=== PATIENT | female | born 1985 | race Caucasian/White ===

== ENCOUNTER 2016-09-09 11:57 | Emergency (ER) | payer MEDICAID ==
[2016-09-09 12:32] VITALS: BP 135/92
--- NOTE | 2016-09-09 12:33 | ER Document Report ---
ED Medical Screen (RME) - General Stated Complaint: LOWER RIGHT SIDE ABDOMINAL PAIN Notes: onset: /friday RLQ abdominal pain NPO since [facility], [place] ED- for RLQ abdominal with nausea, vomiting and diarrhea. Blood work, CT scan, and pelvic US pain originated at her umbilicus with migration to her RLQ. Pt states she has had sharp stabbing abd pain with diarrhea and nausea/vomiting, fevers at home but 98.5 here hysterectomy, cholecystectomy recent dental extraction PCP: [facility] [place] TRAVEL OUTSIDE OF THE [place] IN LAST 30 DAYS: No - Related Data Allergies/Adverse Reactions: clarithromycin [From Biaxin] Allergy (Severe, Verified 09/09/16 12:33) Anaphylaxis hydrocodone bitartrate [From Vicodin] Allergy (Severe, Verified 09/09/16 12:33) Anaphylaxis oxycodone HCl [From Percocet] Allergy (Severe, Verified 09/09/16 12:33) Anaphylaxis Penicillins Allergy (Severe, Verified 09/09/16 12:33) Anaphylaxis Past Medical History - Social History Family history: Reviewed & Not Pertinent - Past Medical History Cardiac Medical History: Denies: Hx Coronary Artery Disease, Hx Heart Attack, Hx Hypertension Pulmonary Medical History: Denies: Hx Asthma, Hx Bronchitis, Hx COPD, Hx Pneumonia Neurological Medical History: Reports: Hx Migraine, Hx Seizures - febrile/last one as child. Denies: Hx Cerebrovascular Accident Renal/ Medical History: Reports: Hx Kidney Stones GI Medical History: Reports: Hx Irritable Bowel Musculoskeltal Medical History: Denies Hx Arthritis Psychiatric Medical History: Reports: Hx Depression Traumatic Medical History: Reports: Hx Fractures Infectious Medical History: Denies: Hx C-Diff Past Surgical History: Reports: Hx Section - x4, Hx Cholecystectomy, Hx Hysterectomy, Hx Oral Surgery, Hx Orthopedic Surgery, Hx Tonsillectomy, Hx Tubal Ligation - Immunizations Immunizations up to date: Yes Hx Diphtheria, Pertussis, Tetanus Vaccination: Yes Physical Exam - Vital signs Vitals: Temp Pulse Resp BP Pulse Ox 98.5 F 85 20 135/92 H 98 09/09/16 12:31 09/09/16 12:31 09/09/16 12:31 09/09/16 12:31 09/09/16 12:31 Course - Vital Signs Vital signs: Temp Pulse Resp BP Pulse Ox 98.5 F 85 20 135/92 H 98 09/09/16 12:31 09/09/16 12:31 09/09/16 12:31 09/09/16 12:31 09/09/16 12:31
[2016-09-09 13:23] LABS: APPEARANCE,URINE SLIGHTLY-CLOUDY; BILIRUBIN,URINE NEGATIVE (NEGATIVE); GLUCOSE, URINE NEGATIVE (NEGATIVE); KETONES,URINE NEGATIVE (NEGATIVE); LEUKOCYTE ESTERASE,URINE NEGATIVE (NEGATIVE); NITRITE,URINE NEGATIVE (NEGATIVE); PROTEIN,URINE NEGATIVE (NEGATIVE); URINE SPECIFIC GRAVITY 1.012; UROBILINOGEN,URINE NEGATIVE mg/dL (<2.0)
--- NOTE | 2016-09-09 14:27 | ER Document Report ---
ED GI/ - General Mode of Arrival: Ambulatory Information source: Patient TRAVEL OUTSIDE OF THE [place] IN LAST 30 DAYS: No - HPI Patient complains to provider of: Abdominal pain Onset: Other - x4 days Timing/Duration: Intermittent Location: RLQ Associated symptoms: Other - see narrative Similar symptoms previously: Yes Recently seen / treated by doctor: Yes <JUAN AVILEZ - Last Filed: 09/09/16 15:57> <TORRES TAM - Last Filed: 09/12/16 01:21> - General Chief Complaint: Abdominal Pain Stated Complaint: LOWER RIGHT SIDE ABDOMINAL PAIN Notes: Patient is a 31-year-old female that presents to the emergency department today with complaints of right lower quadrant abdominal pain for four days. Patient states when her pain began she went to see her primary care physician who "thought it was her ovaries or appendix". Patient states that evening she went to [facility] emergency room due to increasing pain; patient had a thorough workup including an abdominal CT, 2 ultrasounds, and blood work all which were negative. Patient said they told her they "don't know what's wrong" . Patient states she called her primary care physician again today because of continuing pain and he instructed her to come here. Patient states when her pain sets in it lasts for approximately 20 minutes and it comes and goes. Patient also has had nausea, vomiting, and diarrhea. Patient is afebrile. Patient denies a history of ovarian cysts, pelvic pain, vaginal discharge, history of ulcerative colitis, or fevers. (JUAN AVILEZ) - Related Data Allergies/Adverse Reactions: clarithromycin [From Biaxin] Allergy (Severe, Verified 09/09/16 12:33) Anaphylaxis hydrocodone bitartrate [From Vicodin] Allergy (Severe, Verified 09/09/16 12:33) Anaphylaxis oxycodone HCl [From Percocet] Allergy (Severe, Verified 09/09/16 12:33) Anaphylaxis Penicillins Allergy (Severe, Verified 09/09/16 12:33) Anaphylaxis Past Medical History - General Information source: Patient - Social History Smoking Status: Unknown if Ever Smoked Cigarette use (# per day): No Chew tobacco use (# tins/day): No Frequency of alcohol use: None Drug Abuse: None Lives with: Family Family History: Reviewed & Not Pertinent, CAD, DM, Hyperlipidemia, Hypertension Patient has suicidal ideation: No Patient has homicidal ideation: No Neurological Medical History: Reports: Hx Migraine, Hx Seizures - febrile/last one as child Renal/ Medical History: Reports: Hx Kidney Stones GI Medical History: Reports: Hx Irritable Bowel Psychiatric Medical History: Reports: Hx Depression Traumatic Medical History: Reports: Hx Fractures Past Surgical History: Reports: Hx Section - x4, Hx Cholecystectomy, Hx Hysterectomy, Hx Oral Surgery, Hx Orthopedic Surgery, Hx Tonsillectomy, Hx Tubal Ligation - Immunizations Immunizations up to date: Yes Hx Diphtheria, Pertussis, Tetanus Vaccination: Yes <JUAN AVILEZ - Last Filed: 09/09/16 15:57> Review of Systems - Review of Systems Constitutional: denies: Fever EENT: No symptoms reported Cardiovascular: No symptoms reported Respiratory: No symptoms reported Gastrointestinal: See HPI, Abdominal pain, Diarrhea, Nausea, Vomiting Genitourinary: No symptoms reported Female Genitourinary: No symptoms reported Musculoskeletal: No symptoms reported Skin: No symptoms reported Hematologic/Lymphatic: No symptoms reported Neurological/Psychological: No symptoms reported -: Yes All other systems reviewed and negative <JUAN AVILEZ - Last Filed: 09/09/16 15:57> Physical Exam <JUAN AVILEZ - Last Filed: 09/09/16 15:57> <TORRES TAM - Last Filed: 09/12/16 01:21> - Vital signs Vitals: Temp Pulse Resp BP Pulse Ox 98.5 F 85 20 135/92 H 98 09/09/16 12:31 09/09/16 12:31 09/09/16 12:31 09/09/16 12:31 09/09/16 12:31 (JUAN AVILEZ) (TORRES TAM) - Notes Notes: Physical Exam: General: Alert, appears well. HEENT: Normocephalic. Atraumatic. PERRL. Extraocular movements intact. Oropharynx clear. Neck: Supple. Non-tender. Respiratory: No respiratory distress. Clear and equal breath sounds bilaterally. Cardiovascular: Regular rate and rhythm. Abdominal: Obese. Non-tender. No rigidity, no palpable masses. No distension. Normal Bowel Sounds. Extremities: Moves all four extremities. Upper extremities: Normal inspection. Normal ROM. Lower extremities: Normal inspection. No edema. Normal ROM. Neurological: Normal cognition. AAOx4. Normal speech. Psychological: Normal affect. Normal Mood. Skin: Warm. Dry. Normal color. (JUAN AVILEZ) Course - Laboratory Result Diagrams: 09/09/16 14:15 09/09/16 14:15 <JUAN AVILEZ - Last Filed: 09/09/16 15:57> - Laboratory Result Diagrams: 09/09/16 14:15 09/09/16 14:15 <TORRES TAM - Last Filed: 09/12/16 01:21> - Re-evaluation Re-evalutation: 09/09/16 15:30 I personally performed the services described in the documentation, reviewed and edited the documentation which was dictated to my scribe in my presence, and it accurately records my words and actions. Patient presented to the emergency Department chief plain right lower quadrant abdominal pain for 4 days. She says she was seen and evaluated [facility] on Friday night and had a negative workup. Said her family doctor told her to come here. On examination the patient is tech stating in no acute distress with no acute abdominal rebound guarding or rigidity. We signed a release form to get her records from [facility] she had a CT with IV contrast that was normal including normal appendix she also had an ultrasound that showed no ovarian cyst with normal flow. States patient requested a note this she could document the medication she received for her poor officer. She'll have a history of chronic pain as well. She had a hysterectomy and has no cervix so doubt PID no vaginal discharge or bleeding she was discharged home with Juan states she didn't get any medications with documented in the records. On examination well-appearing nontoxic no acute abdominal findings with negative normal labs here. We will DC follow primary care physician in one to 2 days and discussed reasons for ED return sooner 09/09/16 16:08 Spoke with patient at bedside with the caser and charge nurse Mojgan. Patient yelling and arguing demanding to be treated with pain medications and fix her problem. Went into a detailed long explanation of no acute findings on examination laboratory evaluation or further workup that we obtain records from [facility] on Friday. Explained that nothing acute or surgical the family doctor follow up from here. Patient is on her a list with previous issues with chronic pain and narcotics. Discussed with her policy procedure and follow-up with primary care physician also instructed to return for increasing worsening or new symptoms (TORRES TAM) - Vital Signs Vital signs: Temp Pulse Resp BP Pulse Ox 98.5 F 85 20 135/92 H 98 09/09/16 12:31 09/09/16 12:31 09/09/16 12:31 09/09/16 12:31 09/09/16 12:31 (JUAN AVILEZ) (TORRES TAM) - Laboratory Laboratory results interpreted by me: 09/09/16 14:15 AST 53 H ALT 71 H (TORRES TAM) Discharge <JUAN AVILEZ - Last Filed: 09/09/16 15:57> <TORRES TAM - Last Filed: 09/12/16 01:21> - Discharge Clinical Impression: Drug-seeking behavior Abdominal pain Qualifiers: Abdominal location: lower abdomen, unspecified Qualified Code(s): R10.30 - Lower abdominal pain, unspecified Condition: Stable Disposition: HOME, SELF-CARE Additional Instructions: VOMITING: Vomiting (or nausea without vomiting) can be caused by many other different problems. It can mean that something's wrong with the stomach, such as ulcers or inflammation or the intestinal tract, such as appendicitis. But it can also be a symptom of a problem that has nothing to do with the stomach or intestines. Vomiting is common with severe headaches, earaches, tonsillitis, and kidney infections, etc. We see it with pneumonia or heart attacks. Drugs can cause nausea and vomiting. Many abdominal problems cause vomiting; for example, gallstones, kidney stones, pancreatitis, and intestinal obstruction ( blocked bowels). In most cases, curing the vomiting depends on fixing the problem that caused it. For temporary relief, we may use an anti-nausea medicine. For home use, we can prescribe suppositories, chewable pills, pills that dissolve in the mouth, or liquid anti-nausea drugs. If the vomiting seems to be caused by a problem in the stomach, acid-suppressing drugs may be prescribed as well. It's important to avoid dehydration. Sip small amounts of clear liquids ( soft drinks, tea, broth, etc) . Try to take fluids frequently even if you are vomiting to prevent dehydration. Take increasing amounts of fluid and when liquids are being consumed successfully, advance to small amounts of bland food (toast, soups, mashed potatoes, etc.) until you are able to resume a regular diet. Avoid aspirin, tobacco, and alcohol. If the vomiting worsens, if the problem that's making you vomit worsens, or if there's evidence of bleeding in the stomach (such as black, tarry stool, or bloody or black vomit), you should return immediately. Also, return if abdominal pain worsens or becomes localized to one area or you develop high fever. Call your doctor if you aren't improved in 24 hours. DIARRHEA, NON-SPECIFIC: Diarrhea means frequent, watery stools. There are many causes. Any problem that keeps the intestinal tract from absorbing water from the stool can lead to diarrhea. A sudden new diarrhea problem is usually caused by a virus, food sensitivity, toxic bacteria, or drugs. In this case, we expect the problem to go away soon. Testing is done only if you seem seriously ill from the diarrhea. If you have chronic diarrhea, or diarrhea that keeps coming back, we need to find out why. Chronic diarrhea can be due to inflammation of the bowels such as Crohn's disease or ulcerative colitis, food sensitivity such as intolerance to lactose or wheat protein, irritable bowel syndrome, and other problems. If your diarrhea is a significant problem but it's not clear why you have it, we' ll refer you to a specialist for further testing. During an episode of diarrhea, drink small amounts (two to six ounces) of clear liquids (soft drinks, sport drinks, herb teas, broth, etc). Take fluids frequently to prevent dehydration. It's usually not a problem to take mild anti- diarrhea medication such as Kaopectate or Pepto-Bismol. As the diarrhea eases, advance to small amounts of bland food (mashed potato, toast) for 24 hours. Call the physician if blood appears in your vomit or stool, if vomiting lasts longer than 24 hours, if the abdominal pain worsens or becomes localized to one area, if you develop high fever, or if you become lightheaded and weak. VIRAL SYNDROME: The physician has diagnosed a viral infection. Viruses not only cause "colds," but can cause many different symptoms including generalized aching, fever, headache, cough, diarrhea, nausea, vomiting, and fatigue. The treatment, for the most part, is simply relief of symptoms. This means that antibiotics are usually not given. Rest, fluids, pain medications and, occasionally, medication for the specific symptoms that are most bothersome will be prescribed. Use good handwashing to avoid passing the virus to others. Shared toys should be cleaned with disinfectant. Clean the toilets, sinks, and counter surfaces in bathrooms. Launder clothing in hot water. Contact the physician if you develop any new or unusual symptoms such as severe headache, stiff neck, high fever, chest pain, productive cough, or shortness of breath. You should be rechecked if you don't see marked improvement within seven to 10 days. Follow-up with your primary care physician in one to 2 days return for increasing worsening or new symptoms FOLLOW-UP CARE: If you have been referred to a physician for follow-up care in 1-2 days, call the physicians office for an appointment as you were instructed or within the next two days. If you experience worsening or a significant change in your symptoms, notify the physician immediately or return to the Emergency Department at any time for re-evaluation.Abdominal Pain There are many causes of abdominal pain. Pain can mean a serious problem requiring surgery (such as appendicitis). It can also be an innocent problem that goes away on its own (such as a viral infection). Often, time must pass to determine the cause of pain. The physician does not feel that hospitalization is necessary, at present. Things may change within the next 24 hours. Call the doctor or come back for re- examination if any problems occur, such as: (1) Pain that becomes more severe, steady, or becomes concentrated in one specific area. Also, pain that is more severe with movement or coughing. (2) Vomiting that persists or becomes more frequent. (3) Blood in the vomitus, urine, or bowel movements. Blood in the stool may have a tarry or black appearance. (4) Shaking chills or fever greater than 100 degrees F. (5) The abdomen becomes more distended or swollen. (6) Bowel movements cease. (7) Failure to improve as expected. Scribe Documentation <JUAN AVILEZ - Last Filed: 09/09/16 15:57> <TORRES TAM - Last Filed: 09/12/16 01:21> - Scribe Written by Radha:: Dima (JUAN AVILEZ)
[2016-09-09 14:44] LABS: ABSOLUTE EOSINOPHILS # (AUTO) 0.1 10^3/uL (0.0-0.6); ABSOLUTE LYMPHOCYTES (AUTO) 2.1 10^3/uL (0.5-4.7); ABSOLUTE MONOCYTES (AUTO) 0.3 10^3/uL (0.1-1.4); BASOPHILS % (AUTO) 0.6 % (0-2); EOSINOPHILS % (AUTO) 2.4 % (0-6); HEMATOCRIT 43.9 % (36.0-47.0); HEMOGLOBIN 14.5 g/dL (12.0-15.5); HGB HCT DIFFERENCE -0.4; LYMPHOCYTES % (AUTO) 37.8 % (13-45); MEAN CORPUSCULAR HEMOGLOBIN 30.6 pg (27.0-33.4); MEAN CORPUSCULAR VOLUME 93 fl (80-97); MONOCYTES % (AUTO) 5.5 % (3-13); RED BLOOD COUNT 4.73 10^6/uL (3.72-5.28); RED CELL DISTRIBUTION WIDTH 13.4 % (11.5-14.0); SEGMENTED NEUTROPHILS % (AUTO) 53.7 % (42-78); WHITE BLOOD COUNT 5.6 10^3/uL (4.0-10.5)
[2016-09-09 15:02] LABS: ALANINE AMINOTRANSFERASE 71 U/L (9-52); ALBUMIN 4.5 g/dL (3.5-5.0); ALKALINE PHOSPHATASE 62 U/L (38-126); ANION GAP 12 (5-19); ASPARTATE AMINO TRANSFERASE 53 U/L (14-36); BILIRUBIN,TOTAL 1.1 mg/dL (0.2-1.3); BLOOD UREA NITROGEN 9 mg/dL (7-20); CALCIUM 9.6 mg/dL (8.4-10.2); CARBON DIOXIDE 27 mmol/L (22-30); CHLORIDE 103 mmol/L (98-107); CREATININE RESULT 0.69 mg/dL (0.52-1.25); GLUCOSE 79 mg/dL (75-110); LIPASE 54.9 U/L (23-300); POTASSIUM 4.7 mmol/L (3.6-5.0); TOTAL PROTEIN 6.7 g/dL (6.3-8.2)
[2016-09-09 15:26] LABS: URINE BARBITURATES SCREEN NEGATIVE; URINE METHADONE SCREEN NEGATIVE; URINE PHENCYCLIDINE SCREEN NEGATIVE
== END 2016-09-09 16:15 | disposition home or self-care (01) ==
LOC: ER 11:57
DX: R10.32 Left lower quadrant pain (principal); Z76.5 Malingerer [conscious simulation]; R11.2 Nausea with vomiting, unspecified; R19.7 Diarrhea, unspecified; Z87.892 Personal history of anaphylaxis; Z88.1 Allergy status to other antibiotic agents; Z88.5 Allergy status to narcotic agent; Z88.0 Allergy status to penicillin; Z87.442 Personal history of urinary calculi; Z90.49 Acquired absence of other specified parts of digestive tract; Z90.710 Acquired absence of both cervix and uterus; Z98.51 Tubal ligation status
CPT/HCPCS: 36415; 80053; 80307; 81001; 81025; 83690; 85025; 87086; 99284

== ENCOUNTER 2017-06-05 20:00 | Emergency (ER) | payer MEDICAID ==
[2017-06-05 21:01] VITALS: BP 114/87
[2017-06-05 22:45] LABS: APPEARANCE,URINE SLIGHTLY-CLOUDY; BILIRUBIN,URINE NEGATIVE (NEGATIVE); GLUCOSE, URINE NEGATIVE (NEGATIVE); KETONES,URINE NEGATIVE (NEGATIVE); LEUKOCYTE ESTERASE,URINE NEGATIVE (NEGATIVE); NITRITE,URINE NEGATIVE (NEGATIVE); PROTEIN,URINE NEGATIVE (NEGATIVE); URINE SPECIFIC GRAVITY 1.018; UROBILINOGEN,URINE NEGATIVE mg/dL (<2.0)
[2017-06-05 23:53] LABS: ABSOLUTE BASOPHILS # (AUTO) 0.1 10^3/uL (0.0-0.2); ABSOLUTE EOSINOPHILS # (AUTO) 0.1 10^3/uL (0.0-0.6); ABSOLUTE LYMPHOCYTES (AUTO) 3.2 10^3/uL (0.5-4.7); ABSOLUTE MONOCYTES (AUTO) 0.5 10^3/uL (0.1-1.4); ABSOLUTE NEUT (AUTO) 4.6 10^3/uL (1.7-8.2); BASOPHILS % (AUTO) 0.9 % (0-2); EOSINOPHILS % (AUTO) 1.5 % (0-6); HEMATOCRIT 43.3 % (36.0-47.0); HEMOGLOBIN 15.4 g/dL (12.0-15.5); HGB HCT DIFFERENCE 2.9; LYMPHOCYTES % (AUTO) 37.5 % (13-45); MEAN CORPUSCULAR HEMOGLOBIN 31.9 pg (27.0-33.4); MEAN CORPUSCULAR HGB CONC 35.5 g/dL (32.0-36.0); MEAN CORPUSCULAR VOLUME 90 fl (80-97); MONOCYTES % (AUTO) 5.8 % (3-13); RED BLOOD COUNT 4.83 10^6/uL (3.72-5.28); RED CELL DISTRIBUTION WIDTH 13.3 % (11.5-14.0); SEGMENTED NEUTROPHILS % (AUTO) 54.3 % (42-78); WHITE BLOOD COUNT 8.5 10^3/uL (4.0-10.5)
[2017-06-06 00:07] LABS: ALANINE AMINOTRANSFERASE 39 U/L (9-52); ALBUMIN 3.9 g/dL (3.5-5.0); ALKALINE PHOSPHATASE 52 U/L (38-126); ANION GAP 11 (5-19); ASPARTATE AMINO TRANSFERASE 22 U/L (14-36); BILIRUBIN,DIRECT 0.3 mg/dL (0.0-0.4); BILIRUBIN,TOTAL 0.6 mg/dL (0.2-1.3); BLOOD UREA NITROGEN 13 mg/dL (7-20); CALCIUM 9.3 mg/dL (8.4-10.2); CARBON DIOXIDE 26 mmol/L (22-30); CHLORIDE 104 mmol/L (98-107); CREATININE RESULT 0.73 mg/dL (0.52-1.25); GLUCOSE 84 mg/dL (75-110); POTASSIUM 4.3 mmol/L (3.6-5.0); SODIUM 140.5 mmol/L (137-145); TOTAL PROTEIN 5.7 g/dL (6.3-8.2)
--- NOTE | 2017-06-06 00:22 | ER Document Report ---
ED Neck/Back Problem - General Chief Complaint: Back Pain Stated Complaint: UPPER BACK PAIN Time Seen by Provider: 06/05/17 23:30 Notes: The patient is a 31-year-old female, past medical history hysterectomy, cholecystectomy and multiple C-sections, presents with a few days of left flank pain that is worse with palpation and movement and improved when she sits still. She denies nausea, vomiting, dysuria, hematuria, fevers, abdominal pain , cough, chest pain or rash. TRAVEL OUTSIDE OF THE [place] IN LAST 30 DAYS: No - Related Data Allergies/Adverse Reactions: clarithromycin [From Biaxin] Allergy (Severe, Verified 06/05/17 22:20) Anaphylaxis hydrocodone bitartrate [From Vicodin] Allergy (Severe, Verified 06/05/17 22:20) Anaphylaxis oxycodone HCl [From Percocet] Allergy (Severe, Verified 06/05/17 22:20) Anaphylaxis Penicillins Allergy (Severe, Verified 06/05/17 22:20) Anaphylaxis Past Medical History - General Information source: Patient - Social History Smoking Status: Current Some Day Smoker Chew tobacco use (# tins/day): No Frequency of alcohol use: None Drug Abuse: None Family History: Reviewed & Not Pertinent, CAD, DM, Hyperlipidemia, Hypertension Patient has suicidal ideation: No Patient has homicidal ideation: No - Past Medical History Cardiac Medical History: Denies: Hx Coronary Artery Disease, Hx Heart Attack, Hx Hypertension Pulmonary Medical History: Denies: Hx Asthma, Hx Bronchitis, Hx COPD, Hx Pneumonia Neurological Medical History: Reports: Hx Migraine, Hx Seizures - febrile/last one as child. Denies: Hx Cerebrovascular Accident Renal/ Medical History: Reports: Hx Kidney Stones. Denies: Hx Peritoneal Dialysis GI Medical History: Reports: Hx Irritable Bowel Musculoskeltal Medical History: Denies Hx Arthritis Psychiatric Medical History: Reports: Hx Depression Traumatic Medical History: Reports: Hx Fractures Infectious Medical History: Denies: Hx C-Diff Past Surgical History: Reports: Hx Section - x4, Hx Cholecystectomy, Hx Hysterectomy, Hx Oral Surgery, Hx Orthopedic Surgery, Hx Tonsillectomy, Hx Tubal Ligation - Immunizations Immunizations up to date: Yes Hx Diphtheria, Pertussis, Tetanus Vaccination: Yes Review of Systems - Review of Systems Notes: REVIEW OF SYSTEMS: CONSTITUTIONAL: -fevers, -chills EENT: -eye pain, -difficulty swallowing, -nasal congestion CARDIOVASCULAR:-chest pain, -syncope. RESPIRATORY: -cough, -SOB GASTROINTESTINAL: -abdominal pain, - nausea, -vomiting, -diarrhea GENITOURINARY: -dysuria, -hematuria MUSCULOSKELETAL: +left mid-back pain, -neck pain SKIN: -rash or skin lesions. HEMATOLOGIC: -easy bruising or bleeding. LYMPHATIC: -swollen, enlarged glands. NEUROLOGICAL: -altered mental status or loss of consciousness, -headache, - neurologic symptoms PSYCHIATRIC: -anxiety, -depression. ALL OTHER SYSTEMS REVIEWED AND NEGATIVE. Physical Exam - Vital signs Vitals: Temp Pulse Resp BP Pulse Ox 97.9 F 93 20 114/87 H 98 06/05/17 20:58 06/05/17 20:58 06/05/17 20:58 06/05/17 20:58 06/05/17 20:58 - Notes Notes: PHYSICAL EXAMINATION: GENERAL: Well-appearing, well-nourished and in no acute distress. HEAD: Atraumatic, normocephalic. EYES: Pupils equal round and reactive to light, extraocular movements intact, sclera anicteric, conjunctiva are normal. ENT: nares patent, oropharynx clear without exudates. Moist mucous membranes. NECK: Normal range of motion, supple without lymphadenopathy LUNGS: Breath sounds clear to auscultation bilaterally and equal. No wheezes rales or rhonchi. HEART: Regular rate and rhythm without murmurs ABDOMEN: Soft, nontender, normoactive bowel sounds. No guarding, no rebound. No masses appreciated. EXTREMITIES: Normal range of motion, no pitting or edema. No cyanosis. BACK: Tenderness over left mid back with spasming. NEUROLOGICAL: Cranial nerves grossly intact. Normal speech, normal gait. Normal sensory and motor exams. PSYCH: Normal mood, normal affect. SKIN: Warm, Dry, normal turgor, no rashes or lesions noted. Course - Re-evaluation Re-evalutation: Patient appears well. She has tenderness over her left flank that reproduces her pain. Her urinalysis does not show any evidence of pyelonephritis and her abdomen is completely soft and nontender. Rest of labs are unremarkable. Instructed patient to use Lidoderm patches and Robaxin for muscle strain and follow-up with her primary care physician. Offered patient a Lidoderm patch and Robaxin, but patient left prior to receiving the medications. - Vital Signs Vital signs: Temp Pulse Resp BP Pulse Ox 97.9 F 93 18 114/87 H 98 06/05/17 20:58 06/05/17 20:58 06/05/17 22:23 06/05/17 20:58 06/05/17 20:58 - Laboratory Result Diagrams: 06/05/17 23:35 06/05/17 23:35 Laboratory results interpreted by me: 06/05/17 23:35 Total Protein 5.7 L Discharge - Discharge Clinical Impression: Left flank pain Condition: Stable Disposition: HOME, SELF-CARE Additional Instructions: Flank Pain We weren't able to prove an exact cause for your flank pain. Pain in the flank can be caused by a muscle strain or spasm. Sometimes a kidney stone causes pain, but can't be found on our tests. Infection in the kidney should be evident on a urine test. Early shingles can occasionally cause flank pain, without the rash that proves the diagnosis. On rare occasions, disease of the pancreas, aorta, spleen, or colon can create pain in the flank. At this time, there's no evidence of a dangerous condition, and it seems safe for you to be at home. If the pain goes away and does not come back, no further testing will be needed. If pain persists, or becomes more severe, we may need to repeat some tests or order additional new testing. Blood in the urine, urgency to urinate frequently, and pain that radiates to the groin can indicate a kidney stone. Fever may mean that the pain is due to infection, either of the kidney or the colon (diverticulitis). If your pain is early shingles, you should develop an eruption of blisters in the painful area within a few days. Call the doctor or return if you have pain that is spreading or becoming more severe, pain that does not resolve with time, fever, or any other new symptoms. Prescriptions: Lidocaine [Lidoderm 5% (700 mg) Transdermal Patch] 1 patch TP DAILY #10 adh..patch Methocarbamol [Robaxin 500 mg Tablet] 500 mg PO Q4H PRN #7 tablet PRN Reason: Referrals: RAMIRO SINGH MD [Primary Care Provider] - Follow up as needed
[2017-06-06] MEDS ORDERED: LIDOCAINE 5% (700 MG) TRANSDERMAL ADH..PATCH TP ONE (00:50)
[2017-06-06] MEDS ORDERED: METHOCARBAMOL 500 MG TABLET PO ONE (00:50)
== END 2017-06-06 00:48 | disposition home or self-care (01) ==
LOC: ER 20:00
DX: S14.8XXA Injury of other specified nerves of neck, initial encounter (principal); X58.XXXA Exposure to other specified factors, initial encounter; R10.9 Unspecified abdominal pain; R25.2 Cramp and spasm; F17.200 Nicotine dependence, unspecified, uncomplicated; Z90.710 Acquired absence of both cervix and uterus; Z90.49 Acquired absence of other specified parts of digestive tract; Z87.892 Personal history of anaphylaxis; Z88.1 Allergy status to other antibiotic agents; Z88.5 Allergy status to narcotic agent; Z88.0 Allergy status to penicillin; Z87.442 Personal history of urinary calculi
CPT/HCPCS: 36415; 80053; 81001; 81025; 85025; 99283

== ENCOUNTER 2017-08-10 13:34 | Emergency (ER) | payer MEDICAID ==
[2017-08-10 13:42] VITALS: BP 136/89
--- NOTE | 2017-08-10 14:46 | ER Document Report ---
ED Medical Screen (RME) - General Chief Complaint: Abdominal Pain Stated Complaint: ABDOMINAL PAIN Time Seen by Provider: 08/10/17 14:41 Notes: 32-year-old female patient with 2 day history of pain across her lower abdomen states feels like someone is beating her with a baseball that. Watery diarrhea for 2 days which she says is not diarrhea it is just water. Nausea and vomiting , headache, migraine, dizzy, and fever. She has had a partial hysterectomy and cholecystectomy in the past. I have greeted and performed a rapid initial assessment of this patient. A comprehensive ED assessment and evaluation of the patient, analysis of test results and completion of the medical decision making process will be conducted by additional ED providers. TRAVEL OUTSIDE OF THE [place] IN LAST 30 DAYS: No - Related Data Allergies/Adverse Reactions: clarithromycin [From Biaxin] Allergy (Severe, Verified 08/10/17 13:34) Anaphylaxis hydrocodone bitartrate [From Vicodin] Allergy (Severe, Verified 08/10/17 13:34) Anaphylaxis oxycodone HCl [From Percocet] Allergy (Severe, Verified 08/10/17 13:34) Anaphylaxis Penicillins Allergy (Severe, Verified 08/10/17 13:34) Anaphylaxis Past Medical History - Social History Chew tobacco use (# tins/day): No Frequency of alcohol use: None Drug Abuse: None Family history: Reviewed & Not Pertinent - Past Medical History Cardiac Medical History: Denies: Hx Coronary Artery Disease, Hx Heart Attack, Hx Hypertension Pulmonary Medical History: Denies: Hx Asthma, Hx Bronchitis, Hx COPD, Hx Pneumonia Neurological Medical History: Reports: Hx Migraine, Hx Seizures - febrile/last one as child. Denies: Hx Cerebrovascular Accident Renal/ Medical History: Reports: Hx Kidney Stones. Denies: Hx Peritoneal Dialysis GI Medical History: Reports: Hx Irritable Bowel Musculoskeltal Medical History: Denies Hx Arthritis Psychiatric Medical History: Reports: Hx Depression Traumatic Medical History: Reports: Hx Fractures Infectious Medical History: Denies: Hx C-Diff Past Surgical History: Reports: Hx Section - x4, Hx Cholecystectomy, Hx Hysterectomy, Hx Oral Surgery, Hx Orthopedic Surgery, Hx Tonsillectomy, Hx Tubal Ligation - Immunizations Immunizations up to date: Yes Hx Diphtheria, Pertussis, Tetanus Vaccination: Yes History of Influenza Vaccine for 05/2017 - 10/2017 Season: No Physical Exam - Vital signs Vitals: Temp Pulse Resp BP Pulse Ox 98.4 F 90 20 136/89 H 99 08/10/17 13:40 08/10/17 13:40 08/10/17 13:40 08/10/17 13:40 08/10/17 13:40 Course - Vital Signs Vital signs: Temp Pulse Resp BP Pulse Ox 98.4 F 90 20 136/89 H 99 08/10/17 13:40 08/10/17 13:40 08/10/17 13:40 08/10/17 13:40 08/10/17 13:40
[2017-08-10 15:01] LABS: APPEARANCE,URINE SLIGHTLY-CLOUDY; BILIRUBIN,URINE NEGATIVE (NEGATIVE); GLUCOSE, URINE NEGATIVE (NEGATIVE); KETONES,URINE NEGATIVE (NEGATIVE); LEUKOCYTE ESTERASE,URINE NEGATIVE (NEGATIVE); NITRITE,URINE NEGATIVE (NEGATIVE); PROTEIN,URINE NEGATIVE (NEGATIVE); URINE SPECIFIC GRAVITY 1.021; UROBILINOGEN,URINE NEGATIVE mg/dL (<2.0)
[2017-08-10 15:24] LABS: ABSOLUTE EOSINOPHILS # (AUTO) 0.2 10^3/uL (0.0-0.6); ABSOLUTE MONOCYTES (AUTO) 0.5 10^3/uL (0.1-1.4); ABSOLUTE NEUT (AUTO) 6.8 10^3/uL (1.7-8.2); BASOPHILS % (AUTO) 0.4 % (0-2); EOSINOPHILS % (AUTO) 2.2 % (0-6); HEMATOCRIT 45.9 % (36.0-47.0); HEMOGLOBIN 16.6 g/dL (12.0-15.5); HGB HCT DIFFERENCE 3.9; LYMPHOCYTES % (AUTO) 20.8 % (13-45); MEAN CORPUSCULAR HEMOGLOBIN 32.8 pg (27.0-33.4); MEAN CORPUSCULAR HGB CONC 36.2 g/dL (32.0-36.0); MEAN CORPUSCULAR VOLUME 91 fl (80-97); MONOCYTES % (AUTO) 5.1 % (3-13); RED BLOOD COUNT 5.07 10^6/uL (3.72-5.28); RED CELL DISTRIBUTION WIDTH 12.9 % (11.5-14.0); SEGMENTED NEUTROPHILS % (AUTO) 71.5 % (42-78); WHITE BLOOD COUNT 9.6 10^3/uL (4.0-10.5)
[2017-08-10 15:34] LABS: ALANINE AMINOTRANSFERASE 51 U/L (9-52); ALBUMIN 3.9 g/dL (3.5-5.0); ALKALINE PHOSPHATASE 45 U/L (38-126); ANION GAP 10 (5-19); ASPARTATE AMINO TRANSFERASE 34 U/L (14-36); BILIRUBIN,DIRECT 0.2 mg/dL (0.0-0.4); BILIRUBIN,TOTAL 0.8 mg/dL (0.2-1.3); BLOOD UREA NITROGEN 8 mg/dL (7-20); CARBON DIOXIDE 25 mmol/L (22-30); CHLORIDE 104 mmol/L (98-107); CREATININE RESULT 0.71 mg/dL (0.52-1.25); GLUCOSE 82 mg/dL (75-110); POTASSIUM 4.5 mmol/L (3.6-5.0); TOTAL PROTEIN 5.8 g/dL (6.3-8.2)
--- NOTE | 2017-08-10 16:41 | ER Document Report ---
ED General - General Chief Complaint: Abdominal Pain Stated Complaint: ABDOMINAL PAIN Time Seen by Provider: 08/10/17 14:41 Mode of Arrival: Ambulatory Information source: Patient Notes: 32-year-old female presents with complaints of nonstop diarrhea since yesterday. Patient denies any recent antibiotics, denies any well water, denies any exposure to C. difficile, denies any fevers, notes the pain is in the right upper and right lower quadrant. She denies any nausea or vomiting at this time TRAVEL OUTSIDE OF THE [place] IN LAST 30 DAYS: No - HPI Onset: Yesterday Onset/Duration: Sudden Quality of pain: Cramping Severity: Mild Pain Level: 1 Associated symptoms: Diarrhea Exacerbated by: Denies Relieved by: Denies Similar symptoms previously: No Recently seen / treated by doctor: No - Related Data Allergies/Adverse Reactions: clarithromycin [From Biaxin] Allergy (Severe, Verified 08/10/17 13:34) Anaphylaxis hydrocodone bitartrate [From Vicodin] Allergy (Severe, Verified 08/10/17 13:34) Anaphylaxis oxycodone HCl [From Percocet] Allergy (Severe, Verified 08/10/17 13:34) Anaphylaxis Penicillins Allergy (Severe, Verified 08/10/17 13:34) Anaphylaxis Past Medical History - Social History Smoking Status: Current Some Day Smoker Cigarette use (# per day): Yes Chew tobacco use (# tins/day): No Smoking Education Provided: No Frequency of alcohol use: None Drug Abuse: None Family History: Reviewed & Not Pertinent, CAD, DM, Hyperlipidemia, Hypertension Patient has suicidal ideation: No Patient has homicidal ideation: No - Past Medical History Cardiac Medical History: Denies: Hx Coronary Artery Disease, Hx Heart Attack, Hx Hypertension Pulmonary Medical History: Denies: Hx Asthma, Hx Bronchitis, Hx COPD, Hx Pneumonia Neurological Medical History: Reports: Hx Migraine, Hx Seizures - febrile/last one as child. Denies: Hx Cerebrovascular Accident Renal/ Medical History: Reports: Hx Kidney Stones. Denies: Hx Peritoneal Dialysis GI Medical History: Reports: Hx Irritable Bowel Musculoskeltal Medical History: Denies Hx Arthritis Psychiatric Medical History: Reports: Hx Depression Traumatic Medical History: Reports: Hx Fractures Infectious Medical History: Denies: Hx C-Diff Past Surgical History: Reports: Hx Section - x4, Hx Cholecystectomy, Hx Hysterectomy, Hx Oral Surgery, Hx Orthopedic Surgery, Hx Tonsillectomy, Hx Tubal Ligation - Immunizations Immunizations up to date: Yes Hx Diphtheria, Pertussis, Tetanus Vaccination: Yes Review of Systems - Review of Systems Notes: REVIEW OF SYSTEMS: CONSTITUTIONAL : Denies fever, chills, or sweats. Denies recent illness. EENT: Denies eye, ear, throat, or mouth pain or symptoms. Denies nasal or sinus congestion or discharge. Denies throat, tongue, or mouth swelling or difficulty swallowing. CARDIOVASCULAR: Denies chest pain. Denies palpitations or racing or irregular heart beat. Denies ankle edema. RESPIRATORY: Denies cough, cold, or chest congestion. Denies shortness of breath, difficulty breathing, or wheezing. GASTROINTESTINAL: Admits diarrhea GENITOURINARY: Denies difficulty urinating, painful urination, burning, frequency, blood in urine, or discharge. FEMALE GENITOURINARY: Denies vaginal bleeding, heavy or abnormal periods, irregular periods. Denies vaginal discharge or odor. MUSCULOSKELETAL: Denies back or neck pain or stiffness. Denies joint pain or swelling. SKIN: Denies rash, lesions or sores. HEMATOLOGIC : Denies easy bruising or bleeding. LYMPHATIC: Denies swollen, enlarged glands. NEUROLOGICAL: Denies confusion or altered mental status. Denies passing out or loss of consciousness. Denies dizziness or lightheadedness. Denies headache. Denies weakness or paralysis or loss of use of either side. Denies problems with gait or speech. Denies sensory loss, numbness, or tingling. Denies seizures. PSYCHIATRIC: Denies anxiety or stress. Denies depression, suicidal ideation, or homicidal ideation. ALL OTHER SYSTEMS REVIEWED AND NEGATIVE. PHYSICAL EXAMINATION: GENERAL: Well-appearing, well-nourished and in no acute distress. HEAD: Atraumatic, normocephalic. EYES: Pupils equal round and reactive to light, extraocular movements intact, conjunctiva are normal. ENT: Nares patent, oropharynx clear without exudates. Moist mucous membranes. NECK: Normal range of motion, supple without lymphadenopathy LUNGS: Breath sounds clear to auscultation bilaterally and equal. No wheezes rales or rhonchi. HEART: Regular rate and rhythm without murmurs ABDOMEN: Soft, minimally tender in the right upper right lower quadrant no rebound or guarding nondistended abdomen. No masses appreciated. Female : deferred Musculoskeletal: Normal range of motion, no pitting or edema. No cyanosis. NEUROLOGICAL: Cranial nerves grossly intact. Normal speech, normal gait. Normal sensory, motor exams PSYCH: Normal mood, normal affect. SKIN: Warm, Dry, normal turgor, no rashes or lesions noted. Dictation was performed using [email or web address] voice recognition software Physical Exam - Vital signs Vitals: Temp Pulse Resp BP Pulse Ox 98.4 F 90 20 136/89 H 99 08/10/17 13:40 08/10/17 13:40 08/10/17 13:40 08/10/17 13:40 08/10/17 13:40 Course - Re-evaluation Re-evalutation: 08/10/17 16:40 Patient's lab work noted no significant abnormality, she overall looks quite well, she is in no distress, I will treated with Bentyl stopped abdominal spasming nausea control if she begins to vomit. Explained to her that her vital signs and lab work are stable at this time she looks well and we have given her very strict return precautions if symptoms worsen After performing a Medical Screening Examination, I estimate there is LOW risk for ACUTE APPENDICITIS, BOWEL OBSTRUCTION, ACUTE CHOLECYSTITIS, PERFORATED DIVERTICULITIS, INCARCERATED HERNIA, PANCREATITIS, PELVIC INFLAMMATORY DISEASE, PERFORATED ULCER, ECTOPIC , or TUBO-OVARIAN ABSCESS, thus I consider the discharge disposition reasonable. Also, there is no evidence or peritonitis , sepsis, or toxicity. I have reevaluated this patient multiple times and no significant life threatening changes are noted. The patient and I have discussed the diagnosis and risks, and we agree with discharging home with close follow-up with the understanding that symptoms and presentations can change. We also discussed returning to the Emergency Department immediately if new or worsening symptoms occur. We have discussed the symptoms which are most concerning (e.g., bloody stool, fever, changing or worsening pain, vomiting) that necessitate immediate return. - Vital Signs Vital signs: Temp Pulse Resp BP Pulse Ox 98.4 F 90 20 136/89 H 99 08/10/17 13:40 08/10/17 13:40 08/10/17 13:40 08/10/17 13:40 08/10/17 13:40 - Laboratory Result Diagrams: 08/10/17 14:50 08/10/17 14:50 Laboratory results interpreted by me: 1208/10/17 08/10/17 14:40 14:50 14:50 Hgb 16.6 H MCHC 36.2 H Total Protein 5.8 L Urine Ascorbic Acid 20 H Discharge - Discharge Clinical Impression: Diarrhea Qualifiers: Diarrhea type: unspecified type Qualified Code(s): R19.7 - Diarrhea, unspecified Abdominal pain Qualifiers: Abdominal location: generalized Qualified Code(s): R10.84 - Generalized abdominal pain Condition: Stable Disposition: HOME, SELF-CARE Instructions: Abdominal Pain ([facility]), Antispasmodics ([facility]) Additional Instructions: Follow up with your physician tomorrow for further care or return to the ED IMMEDIATELY if symptoms worsen or new concerns occur. If you cannot afford to follow up with your primary care physician a list of low cost clinics have been provided at the end of your discharge papers as well. Prescriptions: Dicyclomine HCl [Bentyl 20 mg Tablet] 20 mg PO QID #40 tablet Metoclopramide HCl [Reglan 10 mg Tablet] 1 - 2 tab PO Q6 #25 tablet
== END 2017-08-10 16:45 | disposition home or self-care (01) ==
LOC: ER 13:34
DX: R19.7 Diarrhea, unspecified (principal); R10.84 Generalized abdominal pain; R10.31 Right lower quadrant pain; R10.11 Right upper quadrant pain; F17.210 Nicotine dependence, cigarettes, uncomplicated
CPT/HCPCS: 36415; 80053; 81001; 84703; 85025; 99284

== ENCOUNTER 2017-09-21 11:28 | Emergency (ER) | payer MEDICAID ==
[2017-09-21] MEDS ORDERED: DIPHENHYDRAMINE HCL 50 MG/ML VIAL IV ONE (12:09)
[2017-09-21] MEDS ORDERED: PROCHLORPERAZINE EDISYLATE INJ 10 MG/2 ML VIAL IV ONE (12:09)
--- NOTE | 2017-09-21 12:35 | ER Document Report ---
ED General - General Chief Complaint: Headache Stated Complaint: HEADACHE Time Seen by Provider: 09/21/17 12:08 Mode of Arrival: Ambulatory Information source: Patient Notes: 32-year-old female history of migraine headaches presents with complaints of migraine headache. Patient notes this is similar to previous headaches denies any fevers or chills denies any nausea vomiting or diarrhea. Patient has headache has been ongoing for approximately a week. Patient notes this is not the worst headache of her life and that she used to be on Imitrex for migraines TRAVEL OUTSIDE OF THE [place] IN LAST 30 DAYS: No - HPI Onset: Last week Onset/Duration: Persistent Quality of pain: Achy Severity: Mild Pain Level: 1 Associated symptoms: Headache Exacerbated by: Denies Relieved by: Denies Similar symptoms previously: Yes Recently seen / treated by doctor: Yes - Related Data Allergies/Adverse Reactions: clarithromycin [From Biaxin] Allergy (Severe, Verified 09/21/17 11:29) Anaphylaxis hydrocodone bitartrate [From Vicodin] Allergy (Severe, Verified 09/21/17 11:29) Anaphylaxis oxycodone HCl [From Percocet] Allergy (Severe, Verified 09/21/17 11:29) Anaphylaxis Penicillins Allergy (Severe, Verified 09/21/17 11:29) Anaphylaxis Past Medical History - Social History Smoking Status: Former Smoker Cigarette use (# per day): No Chew tobacco use (# tins/day): No Smoking Education Provided: No Frequency of alcohol use: None Drug Abuse: None Family History: Reviewed & Not Pertinent, CAD, DM, Hyperlipidemia, Hypertension Patient has suicidal ideation: No Patient has homicidal ideation: No - Past Medical History Cardiac Medical History: Denies: Hx Coronary Artery Disease, Hx Heart Attack, Hx Hypertension Pulmonary Medical History: Denies: Hx Asthma, Hx Bronchitis, Hx COPD, Hx Pneumonia Neurological Medical History: Reports: Hx Migraine, Hx Seizures - febrile/last one as child. Denies: Hx Cerebrovascular Accident Renal/ Medical History: Reports: Hx Kidney Stones. Denies: Hx Peritoneal Dialysis GI Medical History: Reports: Hx Irritable Bowel Musculoskeltal Medical History: Denies Hx Arthritis Psychiatric Medical History: Reports: Hx Depression Traumatic Medical History: Reports: Hx Fractures Infectious Medical History: Denies: Hx C-Diff Past Surgical History: Reports: Hx Section - x4, Hx Cholecystectomy, Hx Hysterectomy, Hx Oral Surgery, Hx Orthopedic Surgery, Hx Tonsillectomy, Hx Tubal Ligation - Immunizations Immunizations up to date: Yes Hx Diphtheria, Pertussis, Tetanus Vaccination: Yes Review of Systems - Review of Systems Notes: REVIEW OF SYSTEMS: CONSTITUTIONAL : Denies fever, chills, or sweats. Denies recent illness. EENT: Denies eye, ear, throat, or mouth pain or symptoms. Denies nasal or sinus congestion or discharge. Denies throat, tongue, or mouth swelling or difficulty swallowing. CARDIOVASCULAR: Denies chest pain. Denies palpitations or racing or irregular heart beat. Denies ankle edema. RESPIRATORY: Denies cough, cold, or chest congestion. Denies shortness of breath, difficulty breathing, or wheezing. GASTROINTESTINAL: Denies abdominal pain or distention. Denies nausea, vomiting , or diarrhea. Denies blood in vomitus, stools, or per rectum. Denies black, tarry stools. Denies constipation. GENITOURINARY: Denies difficulty urinating, painful urination, burning, frequency, blood in urine, or discharge. FEMALE GENITOURINARY: Denies vaginal bleeding, heavy or abnormal periods, irregular periods. Denies vaginal discharge or odor. MUSCULOSKELETAL: Denies back or neck pain or stiffness. Denies joint pain or swelling. SKIN: Denies rash, lesions or sores. HEMATOLOGIC : Denies easy bruising or bleeding. LYMPHATIC: Denies swollen, enlarged glands. NEUROLOGICAL: Admits to headache PSYCHIATRIC: Denies anxiety or stress. Denies depression, suicidal ideation, or homicidal ideation. ALL OTHER SYSTEMS REVIEWED AND NEGATIVE. PHYSICAL EXAMINATION: GENERAL: Well-appearing, well-nourished and in no acute distress. HEAD: Atraumatic, normocephalic. EYES: Pupils equal round and reactive to light, extraocular movements intact, conjunctiva are normal. ENT: Nares patent, oropharynx clear without exudates. Moist mucous membranes. NECK: Normal range of motion, supple without lymphadenopathy LUNGS: Breath sounds clear to auscultation bilaterally and equal. No wheezes rales or rhonchi. HEART: Regular rate and rhythm without murmurs ABDOMEN: Soft, nontender, nondistended abdomen. No guarding, no rebound. No masses appreciated. Female : deferred Musculoskeletal: Normal range of motion, no pitting or edema. No cyanosis. NEUROLOGICAL: Cranial nerves grossly intact. Normal speech, normal gait. Normal sensory, motor exams PSYCH: Normal mood, normal affect. SKIN: Warm, Dry, normal turgor, no rashes or lesions noted. Dictation was performed using [employer] voice recognition software Physical Exam - Vital signs Vitals: Temp Pulse Resp BP Pulse Ox 98.5 F 87 18 131/87 H 98 09/21/17 11:38 09/21/17 11:38 09/21/17 11:38 09/21/17 11:38 09/21/17 11:38 Course - Re-evaluation Re-evalutation: 09/21/17 12:48 Patient was given migraine cocktail including Benadryl and Compazine, room have been signed for her but while she was in the waiting she noted that her migraine had completely resolved and that she wished to go home and get some rest. I explained to the patient risks and benefits of leaving prior to a full evaluation otherwise and she states she understands and will return if there are any other concerns. Otherwise her headache was extremely benign the patient looks well was having no neurologic deficits and had a family member drive her After performing a Medical Screening Examination, I estimate there is LOW risk for ACUTE GLAUCOMA, TEMPORAL ARTERITIS, MENINGITIS, INCRANIAL HEMORRHAGE, or ISCHEMIC STROKE thus I consider the discharge disposition reasonable. I have reevaluated this patient multiple times and no significant life threatening changes are noted. The patient and I have discussed the diagnosis and risks, and we agree with discharging home with close follow-up with the understanding that symptoms and presentations can change. We also discussed returning to the Emergency Department immediately if new or worsening symptoms occur. We have discussed the symptoms which are most concerning (e.g., changing or worsening symptoms, new numbness or weakness, vomiting, fever) that necessitate immediate return. - Vital Signs Vital signs: Temp Pulse Resp BP Pulse Ox 98.5 F 87 18 131/87 H 98 09/21/17 11:38 09/21/17 11:38 09/21/17 11:38 09/21/17 11:38 09/21/17 11:38 Discharge - Discharge Clinical Impression: Headache Qualifiers: Headache type: unspecified Headache chronicity pattern: acute headache Intractability: not intractable Qualified Code(s): R51 - Headache Condition: Stable Disposition: HOME, SELF-CARE Instructions: Headache ([facility]) Referrals: JOEL GONZALEZ MD [ACTIVE STAFF] - Follow up in 3-5 days
[2017-09-21 13:20] VITALS: BP 140/72
== END 2017-09-21 12:40 | disposition home or self-care (01) ==
LOC: ER 11:28
DX: G43.909 Migraine, unspecified, not intractable, without status migrainosus (principal); Z87.892 Personal history of anaphylaxis; Z88.1 Allergy status to other antibiotic agents; Z88.5 Allergy status to narcotic agent; Z88.0 Allergy status to penicillin; Z87.891 Personal history of nicotine dependence
CPT/HCPCS: 99283; 96374; 96375; J1200; J0780

== ENCOUNTER 2017-10-14 06:50 | Day surgery (SDC) | payer OTHER, MEDICAID ==
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
[2017-10-14] MEDS ORDERED: ONDANSETRON HCL INJ/PF 4 MG/2 ML SDV IV ONE (07:36)
[2017-10-14] MEDS ORDERED: HYDROMORPHONE HCL INJ/PF 2 MG/ML AMPULE IV ONE ×2 (07:36→12:21)
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
[2017-10-14 07:52] LABS: ABSOLUTE EOSINOPHILS # (AUTO) 0.1 10^3/uL (0.0-0.6); ABSOLUTE LYMPHOCYTES (AUTO) 2.4 10^3/uL (0.5-4.7); ABSOLUTE MONOCYTES (AUTO) 0.4 10^3/uL (0.1-1.4); ABSOLUTE NEUT (AUTO) 4.3 10^3/uL (1.7-8.2); BASOPHILS % (AUTO) 0.6 % (0-2); HEMATOCRIT 42.4 % (36.0-47.0); HEMOGLOBIN 14.8 g/dL (12.0-15.5); LYMPHOCYTES % (AUTO) 33.5 % (13-45); MEAN CORPUSCULAR HEMOGLOBIN 31.4 pg (27.0-33.4); MEAN CORPUSCULAR HGB CONC 34.8 g/dL (32.0-36.0); MEAN CORPUSCULAR VOLUME 90 fl (80-97); MONOCYTES % (AUTO) 5.1 % (3-13); PLATELET COUNT 239 10^3/uL (150-450); RED CELL DISTRIBUTION WIDTH 13.3 % (11.5-14.0); SEGMENTED NEUTROPHILS % (AUTO) 58.8 % (42-78); TOTAL CELLS COUNTED % (AUTO) 100 %; WHITE BLOOD COUNT 7.2 10^3/uL (4.0-10.5)
[2017-10-14 07:53] LABS: ALANINE AMINOTRANSFERASE 26 U/L (9-52); ALBUMIN 3.9 g/dL (3.5-5.0); ALKALINE PHOSPHATASE 54 U/L (38-126); ANION GAP 13 (5-19); ASPARTATE AMINO TRANSFERASE 24 U/L (14-36); BILIRUBIN,DIRECT 0.4 mg/dL (0.0-0.4); BILIRUBIN,TOTAL 0.5 mg/dL (0.2-1.3); BLOOD UREA NITROGEN 11 mg/dL (7-20); CALCIUM 8.9 mg/dL (8.4-10.2); CARBON DIOXIDE 22 mmol/L (22-30); CHLORIDE 107 mmol/L (98-107); GLUCOSE 115 mg/dL (75-110); POTASSIUM 3.8 mmol/L (3.6-5.0)
[2017-10-14] MEDS ORDERED: DEXTROSE 5%-1/2 NORMAL SALINE 1,000 ML IV ONE (08:02)
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
[2017-10-14] MEDS: HYDROMORPHONE HCL INJ/PF 2 MG/ML AMPULE IV PRN ×4 (09:41→19:39)
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
[2017-10-14] MEDS ORDERED: KETOROLAC TROMETHAMINE INJ/PF 30 MG/1 ML SDV IV ONE (14:16)
[2017-10-14] MEDS ORDERED: CEFAZOLIN 2 GM/D5W RTU 2 GM/50 ML RTUPB IV PRN (21:19)
[2017-10-14] MEDS ORDERED: PROMETHAZINE HCL INJ 25 MG/1 ML VIAL IV PRN (21:20)
[2017-10-14] MEDS ORDERED: TRANEXAMIC ACID INJ/PF 1,000 MG/10 ML SDV IV PRN (21:20)
[2017-10-14] MEDS ORDERED: ACETAMINOPHEN 325 MG TABLET PO PRN (21:21)
[2017-10-14] MEDS: HYDROMORPHONE HCL INJ/PF 2 MG/ML AMPULE IV SCH (22:06)
[2017-10-15] MEDS ORDERED: RINGERS SOLUTION,LACTATED 1,000 ML IV PRN (00:01)
[2017-10-15] MEDS: HYDROMORPHONE HCL INJ/PF 2 MG/ML AMPULE IV SCH ×4 (00:13→05:58)
[2017-10-15] MEDS ORDERED: CEFAZOLIN INJ 1 GM VIAL ONE (07:26)
[2017-10-15] MEDS ORDERED: BUPIVACAINE HCL 0.5%-EPI 1:200000 INJ/PF 30 ML VIAL ONE (07:54)
[2017-10-15] MEDS ORDERED: FENTANYL CITRATE INJ/PF 100 MCG/2 ML AMPUL ONE (08:05)
[2017-10-15] MEDS ORDERED: PROPOFOL INJ 200 MG/20 ML VIAL IV ONE (08:05)
[2017-10-15] MEDS ORDERED: MIDAZOLAM 2 MG/2 ML INJ ONE (08:05)
[2017-10-15] MEDS ORDERED: LIDOCAINE 2% INJ-PF (20 MG/ML) 10 ML AMPUL ONE (08:05)
[2017-10-15] MEDS ORDERED: ACETAMINOPHEN 100 ML IV ONE (08:05)
[2017-10-15] MEDS ORDERED: ONDANSETRON HCL INJ/PF 4 MG/2 ML SDV ONE (08:05)
[2017-10-15] MEDS ORDERED: HYDROMORPHONE HCL INJ/PF 2 MG/ML AMPULE ONE (08:06)
[2017-10-15] MEDS ORDERED: SUCCINYLCHOLINE CHLORIDE INJ 200 MG/10 ML VIAL ONE (08:12)
[2017-10-15] MEDS ORDERED: CLINDAMYCIN 600 MG/D5W RTU 600 MG/50 ML RTUPB IV ONE (08:44)
[2017-10-15] MEDS ORDERED: ONDANSETRON HCL INJ/PF 4 MG/2 ML SDV IV PRN (09:01)
[2017-10-15] MEDS ORDERED: MEPERIDINE HCL/PF INJ 25 MG/1 ML DISP.SYRIN IV PRN (09:01)
[2017-10-15] MEDS ORDERED: PROMETHAZINE HCL INJ 25 MG/1 ML VIAL IV PRN ×3 (09:01→14:00)
[2017-10-15] MEDS ORDERED: DIPHENHYDRAMINE HCL 50 MG/ML VIAL IV PRN (09:01)
[2017-10-15] MEDS ORDERED: MORPHINE SULFATE 10 MG/ML INJ IV PRN (09:01)
[2017-10-15] MEDS ORDERED: FENTANYL CITRATE INJ/PF 100 MCG/2 ML AMPUL IV PRN ×3 (09:01)
--- NOTE | 2017-10-15 09:55 | Operative Report ---
Operative Report DATE OF SURGERY: 10/15/17 PREOPERATIVE DIAGNOSIS: Right humerus fracture OPERATION: Open reduction internal fixation right humerus fracture SURGEON: NICOLASA CASTELLANOS 1ST LICENSED DIRECT ENTRY MIDWIFE: BARRY YEPEZ ANESTHESIA: GA ESTIMATED BLOOD LOSS: 50 PROCEDURE: With the patient in a left lateral decubitus position on the operating table the right upper extremities prepped and draped in a sterile fashion. Limb was elevated for exsanguination tourniquet inflated 250 torr. A posterior lateral incision is made beginning at the lateral humeral epicondyle extending proximally to approximately the junction of the proximal middle third. Sharp dissection electrocautery carried the incision down to the muscle fascia. The muscle fascia was divided along its fibers. The fracture site is easily identified. The radial nerve is identified visually and then confirmed with a nerve stimulator. A Vesseloops placed around it and the nerve is protected throughout the remainder of the case. The fracture is reduced under direct visualization and confirmed with fluoroscopy. Subsequently a [place] titanium 10 hole posterior lateral articular elbow plate is applied to the posterior lateral aspect of the humerus and the fracture is reduced to the plate both proximally distally. It secured distally with 4 screws and proximally 4 screws. The fracture reduction and the plate placement were confirmed fluoroscopically and felt to be adequate. At this point the tourniquet is deflated the wound is irrigated and hemostasis obtained with electrocautery. The wound is closed in layers with interrupted Vicryl followed by charli. Sterile compressive dressings applied and the patient's return to PACU in satisfactory condition.
--- NOTE | 2017-10-15 10:47 | RADIOLOGY REPORT (SQ) ---
EXAM DESCRIPTION: HUMERUS RIGHT; NO CHG FLUORO COMPLETED DATE/TIME: 10/15/2017 10:16 am REASON FOR STUDY: ORIF RT HUMERUS ASST WITH FLUORO IN OR COMPARISON: Right humerus films 10/14/2017 FLUOROSCOPY TIME: 0.4 minutes 4 digital radiographic images saved to PACS. TECHNIQUE: Intra-operative images acquired during surgical procedure to evaluate progress. NUMBER OF IMAGES: 4 digital radiographic images LIMITATIONS: None. FINDINGS: Intra procedural imaging and fluoro during ORIF distal right humerus diaphysis spiral frac ture with butterfly fragment. Good alignment at the fracture site. Please see the operative report for further details. IMPRESSION: Intra procedural imaging and fluoro COMMENT: Quality ID [id number]: Final reports for procedures using fluoroscopy that document radiation exp osure indices, or exposure time and number of fluorographic images (if radiation exposure indices are not available) Please consult full operative report of the attending physician for description of the procedure. TECHNICAL DOCUMENTATION: JOB ID: [id number]- All Rights Reserved
[2017-10-15] MEDS ORDERED: TRANEXAMIC ACID INJ/PF 1,000 MG/10 ML SDV IV ONE (12:00)
[2017-10-15] MEDS: HYDROMORPHONE HCL INJ/PF 2 MG/ML AMPULE IV PRN ×2 (12:22→15:25)
[2017-10-15] MEDS ORDERED: ONDANSETRON 4 MG TAB.RAPDIS SL PRN (13:46)
[2017-10-15] MEDS ORDERED: OXYCODONE HCL IR 5 MG TABLET PO PRN (14:38)
[2017-10-15 15:21] VITALS: BP 110/67
[2017-10-15] MEDS ORDERED: CLINDAMYCIN 600 MG/D5W RTU 600 MG/50 ML RTUPB IV SCH (18:00)
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
== END 2017-10-15 16:36 | disposition home or self-care (01) ==
LOC: ER 06:50 → OROUT 09:19 → UNDOADMIN 09:19 → ER 09:19 → EH 09:19 → 4W 20:30 → EH 20:30 → 4W 20:30 → OROUT 10-15 16:36 → UNDODISIN 10-15 16:36
PROVIDERS: ATTEND Orthopaedic Surgery
PROC: 0PSF04Z Reposition Right Humeral Shaft with Internal Fixation Device, Open Approach (ICD-10-PCS; principal; 2017-10-14)
DX: S42.494A Other nondisplaced fracture of lower end of right humerus, initial encounter for closed fracture (principal); V49.9XXA Car occupant (driver) (passenger) injured in unspecified traffic accident, initial encounter; G43.909 Migraine, unspecified, not intractable, without status migrainosus; E66.3 Overweight; Z88.0 Allergy status to penicillin; Z88.5 Allergy status to narcotic agent; Z87.892 Personal history of anaphylaxis; Z68.35 Body mass index [BMI] 35.0-35.9, adult
CPT/HCPCS: 99285; 96374; 96375; 36415; 84703; 85025; 80053; 72040; 73090; 73060 ×2; 97166; 24586; C1713 ×3; J2250; J3490 ×3; J1885; J1170 ×2; J0330; J2405 ×2; J7120; J2704; J0131; 01740; J0690; J3010

== ENCOUNTER 2017-10-16 13:02 | Emergency (ER) | payer OTHER, MEDICAID ==
[2017-10-16] MEDS ORDERED: NAPROXEN 250 MG TABLET PO ONE (14:58)
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
[2017-10-16 16:21] VITALS: BP 139/85
== END 2017-10-16 16:01 | disposition home or self-care (01) ==
LOC: ER 13:02
PROC: 2W38X1Z Immobilization of Right Upper Extremity using Splint (ICD-10-PCS; principal; 2017-10-16)
DX: G89.18 Other acute postprocedural pain (principal); Z88.6 Allergy status to analgesic agent; Z88.0 Allergy status to penicillin; Z87.442 Personal history of urinary calculi; Z90.710 Acquired absence of both cervix and uterus; Z90.49 Acquired absence of other specified parts of digestive tract
CPT/HCPCS: 99284

== ENCOUNTER 2017-11-16 19:45 | Emergency (ER) | payer MEDICAID, OTHER ==
[2017-11-16 20:18] VITALS: BP 135/105
[2017-11-16] MEDS ORDERED: ONDANSETRON HCL INJ/PF 4 MG/2 ML SDV IV ONE (20:37)
[2017-11-16] MEDS ORDERED: NORMAL SALINE 1000 ML 1,000 ML IV ONE (20:37)
[2017-11-16] MEDS ORDERED: KETOROLAC TROMETHAMINE INJ/PF 30 MG/1 ML SDV IV ONE (20:37)
[2017-11-16] MEDS ORDERED: ACETAMINOPHEN 325 MG TABLET PO ONE (20:37)
--- NOTE | 2017-11-16 20:41 | ER Document Report ---
ED Medical Screen (RME) - General Chief Complaint: Pain Stated Complaint: POST OP PAIN Time Seen by Provider: 11/16/17 20:36 Mode of Arrival: Ambulatory Information source: Patient TRAVEL OUTSIDE OF THE [place] IN LAST 30 DAYS: No - HPI Patient complains to provider of: fever, arm pain Notes: 11/16/17 20:40 Patient is here with complaints of right arm pain. She fractured her humerus and had surgery by Dr. Lee and has plates in her right humerus. She states that she is out of all of her postoperative pain medication. She now having pain at the right proximal forearm where there is a small lump and mild redness noted. She started running fevers today. She is also had nausea vomiting as well. Physical exam: Patient is in no significant acute distress. Small red tender area to the proximal right forearm. Right humerus incision has healed well with no significant redness or drainage. Tachycardia. An initial examination was made on the patient as part of the triage process, and it was determined a more comprehensive evaluation was necessary. Initial labs were ordered and patient was transferred to another provider in the ED who assumed care and finished evaluation and plan. - Related Data Allergies/Adverse Reactions: clarithromycin [From Biaxin] Allergy (Severe, Verified 11/16/17 19:51) Anaphylaxis hydrocodone bitartrate [From Vicodin] Allergy (Severe, Verified 11/16/17 19:51) Anaphylaxis oxycodone HCl [From Percocet] Allergy (Severe, Verified 11/16/17 19:51) Anaphylaxis Penicillins Allergy (Severe, Verified 11/16/17 19:51) Anaphylaxis Past Medical History - Social History Family history: Reviewed & Not Pertinent - Past Medical History Cardiac Medical History: Denies: Hx Coronary Artery Disease, Hx Heart Attack, Hx Hypertension Pulmonary Medical History: Denies: Hx Asthma, Hx Bronchitis, Hx COPD, Hx Pneumonia Neurological Medical History: Reports: Hx Migraine, Hx Seizures - febrile/last one as child. Denies: Hx Cerebrovascular Accident Renal/ Medical History: Reports: Hx Kidney Stones, Hx Peritoneal Dialysis GI Medical History: Reports: Hx Irritable Bowel Musculoskeltal Medical History: Denies Hx Arthritis Psychiatric Medical History: Reports: Hx Depression Traumatic Medical History: Reports: Hx Fractures Infectious Medical History: Denies: Hx C-Diff Past Surgical History: Reports: Hx Section - x4, Hx Cholecystectomy, Hx Hysterectomy, Hx Oral Surgery, Hx Orthopedic Surgery, Hx Tonsillectomy, Hx Tubal Ligation - Immunizations Immunizations up to date: Yes Hx Diphtheria, Pertussis, Tetanus Vaccination: Yes History of Influenza Vaccine for 05/2017 - 10/2017 Season: Refused Physical Exam - Vital signs Vitals: Temp Pulse BP Pulse Ox 101.6 F H 122 H 135/105 H 99 11/16/17 20:17 11/16/17 20:17 11/16/17 20:17 11/16/17 20:17 Course - Vital Signs Vital signs: Temp Pulse Resp BP Pulse Ox 101.6 F H 122 H 135/105 H 99 11/16/17 20:17 11/16/17 20:17 11/16/17 20:17 11/16/17 20:17
[2017-11-16] MEDS ORDERED: HYDROMORPHONE HCL INJ/PF 2 MG/ML AMPULE IV ONE ×2 (21:01→23:45)
--- NOTE | 2017-11-16 21:14 | ER Document Report ---
ED General - General Chief Complaint: Pain Stated Complaint: POST OP PAIN Time Seen by Provider: 11/16/17 20:36 Mode of Arrival: Ambulatory Notes: Patient is a 32-year-old female that comes emergency department for more than one complaint. She states that her arm hurts and she is out of her pain medication including gabapentin and Dilaudid. She is postop ORIF of the right humerus by Dr. Lee in September. She also states that today she started running a fever and vomiting, she has vomited about 3 times. She denies abnormal bowel movements. She denies dysuria, lower abdominal pain, vaginal discharge, flank pain, headache, cough, difficulty breathing, sore throat. She states her arm is unchanged except there is a small red lump on her right forearm that she has noticed. TRAVEL OUTSIDE OF THE [place] IN LAST 30 DAYS: No - Related Data Allergies/Adverse Reactions: clarithromycin [From Biaxin] Allergy (Severe, Verified 11/16/17 19:51) Anaphylaxis hydrocodone bitartrate [From Vicodin] Allergy (Severe, Verified 11/16/17 19:51) Anaphylaxis oxycodone HCl [From Percocet] Allergy (Severe, Verified 11/16/17 19:51) Anaphylaxis Penicillins Allergy (Severe, Verified 11/16/17 19:51) Anaphylaxis Past Medical History - General Information source: Patient - Social History Smoking Status: Never Smoker Frequency of alcohol use: None Drug Abuse: None Lives with: Family Family History: Reviewed & Not Pertinent, CAD, DM, Hyperlipidemia, Hypertension - Past Medical History Cardiac Medical History: Denies: Hx Coronary Artery Disease, Hx Heart Attack, Hx Hypertension Pulmonary Medical History: Denies: Hx Asthma, Hx Bronchitis, Hx COPD, Hx Pneumonia Neurological Medical History: Reports: Hx Migraine, Hx Seizures - febrile/last one as child. Denies: Hx Cerebrovascular Accident Renal/ Medical History: Reports: Hx Kidney Stones, Hx Peritoneal Dialysis GI Medical History: Reports: Hx Irritable Bowel Musculoskeltal Medical History: Denies Hx Arthritis Psychiatric Medical History: Reports: Hx Depression Traumatic Medical History: Reports: Hx Fractures Infectious Medical History: Denies: Hx C-Diff Past Surgical History: Reports: Hx Section - x4, Hx Cholecystectomy, Hx Hysterectomy, Hx Oral Surgery, Hx Orthopedic Surgery, Hx Tonsillectomy, Hx Tubal Ligation - Immunizations Immunizations up to date: Yes Hx Diphtheria, Pertussis, Tetanus Vaccination: Yes Review of Systems - Review of Systems Constitutional: See HPI EENT: No symptoms reported Cardiovascular: No symptoms reported Respiratory: No symptoms reported Gastrointestinal: No symptoms reported Genitourinary: No symptoms reported Female Genitourinary: No symptoms reported Musculoskeletal: See HPI Skin: No symptoms reported Hematologic/Lymphatic: No symptoms reported Neurological/Psychological: No symptoms reported Physical Exam - Vital signs Vitals: Temp Pulse BP Pulse Ox 101.6 F H 122 H 135/105 H 99 11/16/17 20:17 11/16/17 20:17 11/16/17 20:17 11/16/17 20:17 - General General appearance: Appears well, Alert - Alert and well-appearing In distress: None - HEENT Head: Normocephalic, Atraumatic Eyes: Normal Conjunctiva: Normal Extraocular movements intact: Yes Eyelashes: Normal Pupils: PERRL Mouth/Lips: Normal Mucous membranes: Normal Pharynx: Normal Neck: Normal - Respiratory Respiratory status: No respiratory distress Chest status: Nontender. No: Tender Breath sounds: Normal. No: Decreased air movement, Wheezing - Cardiovascular Rhythm: Regular, Tachycardia Heart sounds: Normal auscultation, S1 appreciated, S2 appreciated Murmur: No Normal capillary refill: Yes - Abdominal Inspection: Normal Tenderness: Nontender. No: Tender, Guarding - Back Back: Normal, Nontender. No: Tender, CVA tenderness - Extremities General upper extremity: Other - There is a long postsurgical scar over the right distal humerus, the area is nontender, not erythematous, healed, well- appearing. Over the right forearm there is a tiny area where there is a questionable bump that appears mildly tender, no induration, fluctuance, erythema, or other abnormality. Normal upper extremity exam otherwise. 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 Patient has a soft abdomen. She is actually quite well-appearing other than being tachycardic. She denies headache, has no respiratory symptoms, denies IV drug abuse. CBC, chemistry unremarkable. Venous Doppler of the upper extremity is unremarkable. Urinalysis is consistent with infection with 3+ bacteria, leukocyte esterase, and white blood cell clumps. Patient presentation is not suggestive of infected kidney stone, I do not appreciate any CVA tenderness or abdominal pain. Patient was started on antibiotics. Blood and urine cultures were already pending. No leukocytosis, lactic acid is not elevated, tachycardia resolved with fever treatment. Patient continues to be well-appearing. I did provide her with antibiotics, pain medication, nausea medication, follow-up instructions, and return precautions which were discussed. Patient states satisfaction and agreement with plan. - Vital Signs Vital signs: Temp Pulse Resp BP Pulse Ox 98.4 F 122 H 18 135/105 H 97 11/16/17 23:11 11/16/17 20:17 11/17/17 00:00 11/16/17 20:17 11/17/17 00:00 - Laboratory Result Diagrams: 11/16/17 21:15 11/16/17 21:15 Laboratory results interpreted by me: 11/16/17 11/16/17 11/16/17 21:15 21:15 22:05 Seg Neutrophils % 78.1 H Calcium 10.5 H Urine Protein 30 H Ur Leukocyte Esterase LARGE H Discharge - Discharge Clinical Impression: Right arm pain Fever Qualifiers: Fever type: unspecified Qualified Code(s): R50.9 - Fever, unspecified Urinary tract infection Qualifiers: Urinary tract infection type: site unspecified Hematuria presence: without hematuria Qualified Code(s): N39.0 - Urinary tract infection, site not specified Vomiting Qualifiers: Vomiting type: unspecified Vomiting Intractability: non-intractable Nausea presence: with nausea Qualified Code(s): R11.2 - Nausea with vomiting, unspecified Condition: Stable Disposition: HOME, SELF-CARE Additional Instructions: Your workup indicates a kidney infection (pyelonephritis). He has become antibiotics for this, continue the cephalexin antibiotics as prescribed to completion. Take the nausea medication if needed, take the pain medication if needed. Follow-up with your provider for additional evaluation and management. Return the emergency department for any concerning or worsening symptoms including developing or worsening abdominal or back pain, return or worsening vomiting, swelling or redness of your arm, or any other concerning or worsening symptoms. Prescriptions: Morphine Sulfate [Morphine Ir 15 Mg Tablet] 15 mg PO Q4HP PRN #20 tablet PRN Reason: Cephalexin Monohydrate [Keflex 500 mg Capsule] 500 mg PO QID #28 capsule Ondansetron [Zofran Odt 4 mg Tablet] 1 - 2 tab PO Q4H PRN #20 tab.rapdis PRN Reason: For Nausea/Vomiting
[2017-11-16 21:34] LABS: ABSOLUTE EOSINOPHILS # (AUTO) 0.1 10^3/uL (0.0-0.6); ABSOLUTE LYMPHOCYTES (AUTO) 1.3 10^3/uL (0.5-4.7); ABSOLUTE MONOCYTES (AUTO) 0.6 10^3/uL (0.1-1.4); ABSOLUTE NEUT (AUTO) 7.2 10^3/uL (1.7-8.2); BASOPHILS % (AUTO) 0.2 % (0-2); EOSINOPHILS % (AUTO) 0.7 % (0-6); HEMOGLOBIN 14.1 g/dL (12.0-15.5); MEAN CORPUSCULAR HEMOGLOBIN 31.3 pg (27.0-33.4); MEAN CORPUSCULAR HGB CONC 35.2 g/dL (32.0-36.0); MEAN CORPUSCULAR VOLUME 89 fl (80-97); PLATELET COUNT 279 10^3/uL (150-450); RED CELL DISTRIBUTION WIDTH 12.7 % (11.5-14.0); SEGMENTED NEUTROPHILS % (AUTO) 78.1 % (42-78); TOTAL CELLS COUNTED % (AUTO) 100 %; WHITE BLOOD COUNT 9.3 10^3/uL (4.0-10.5)
[2017-11-16 21:53] LABS: ALANINE AMINOTRANSFERASE 34 U/L (9-52); ALBUMIN 4.7 g/dL (3.5-5.0); ALKALINE PHOSPHATASE 77 U/L (38-126); ANION GAP 15 (5-19); ASPARTATE AMINO TRANSFERASE 20 U/L (14-36); BILIRUBIN,DIRECT 0.1 mg/dL (0.0-0.4); BILIRUBIN,TOTAL 1.3 mg/dL (0.2-1.3); BLOOD UREA NITROGEN 9 mg/dL (7-20); CALCIUM 10.5 mg/dL (8.4-10.2); CARBON DIOXIDE 24 mmol/L (22-30); CHLORIDE 102 mmol/L (98-107); GLUCOSE 92 mg/dL (75-110); POTASSIUM 4.3 mmol/L (3.6-5.0); SODIUM 140.6 mmol/L (137-145); TOTAL PROTEIN 6.8 g/dL (6.3-8.2)
[2017-11-16 22:57] LABS: AMORPHOUS SEDIMENT,URINE TRACE /HPF; APPEARANCE,URINE CLOUDY; BILIRUBIN,URINE NEGATIVE (NEGATIVE); COLOR,URINE YELLOW; GLUCOSE, URINE NEGATIVE (NEGATIVE); KETONES,URINE NEGATIVE (NEGATIVE); LEUKOCYTE ESTERASE,URINE LARGE (NEGATIVE); NITRITE,URINE NEGATIVE (NEGATIVE); PROTEIN,URINE 30 mg/dL (NEGATIVE); URINE SPECIFIC GRAVITY 1.006; UROBILINOGEN,URINE NEGATIVE mg/dL (<2.0)
[2017-11-16] MEDS ORDERED: CEFTRIAXONE 1 GM/D5W RTU 1 GM/50 ML RTUPB IV ONE (23:06)
[2017-11-16] MEDS ORDERED: CEFTRIAXONE INJ 1000 MG VIAL ONE (23:17)
--- NOTE | 2017-11-16 23:17 | RADIOLOGY REPORT (SQ) ---
EXAM DESCRIPTION: VENOUS UNILATERAL UPPER COMPLETED DATE/TIME: 11/16/2017 10:48 pm REASON FOR STUDY: right arm pain, post op COMPARISON: None. TECHNIQUE: Dynamic and static perry scale and color images acquired of the right arm venous system. S elected spectral images acquired with additional compression and augmentation maneuvers. The contrala teral subclavian vein and internal jugular vein were also imaged. Images stored on PACS. LIMITATIONS: None. FINDINGS: RIGHT INTERNAL JUGULAR VEIN: Normal phasicity, compression, augmentation. No visualized echogenic material on perry scale. No defects on color images. Comparison opposite side normal. SUBCLAVIAN VEIN: Normal compression, augmentation. No visualized echogenic material on perry scale. No defects on color images. AXILLARY VEIN: Normal compression, augmentation. No visualized echogenic material on perry scale. No d efects on color images. BRACHIAL VEIN: Normal compression, augmentation. No visualized echogenic material on perry scale. No d efects on color images. BASILIC VEIN: Normal compression, augmentation. No visualized echogenic material on perry scale. No de fects on color images. CEPHALIC VEIN: Normal compression, augmentation. No visualized echogenic material on perry scale. No d efects on color images. OTHER: No other significant finding. LEFT SUBCLAVIAN VEIN AND INTERNAL JUGULAR VEIN: Normal phasicity, compression and augmentation. No visualized echogenic material on perry scale. No de fects on color images. IMPRESSION: NO EVIDENCE DVT OR SVT RIGHT ARM. TECHNICAL DOCUMENTATION: JOB ID: [id number] [employer]- All Rights Reserved Reading location - IP/workstation name: [email or web address]
--- NOTE | 2017-11-16 23:18 | RADIOLOGY REPORT (SQ) ---
EXAM DESCRIPTION: CHEST SINGLE VIEW COMPLETED DATE/TIME: 11/16/2017 11:04 pm REASON FOR STUDY: fever, post op COMPARISON: 01/29/2016 two-view chest EXAM PARAMETERS: NUMBER OF VIEWS: One view. TECHNIQUE: Single frontal radiographic view of the chest acquired. RADIATION DOSE: NA LIMITATIONS: None. FINDINGS: LUNGS AND PLEURA: No opacities, masses or pneumothorax. No pleural effusion. MEDIASTINUM AND HILAR STRUCTURES: No masses. Contour normal. HEART AND VASCULAR STRUCTURES: Heart normal in size. Normal vasculature. BONES: No acute findings. HARDWARE: None in the chest. OTHER: No other significant finding. IMPRESSION: NO ACUTE RADIOGRAPHIC FINDING IN THE CHEST. TECHNICAL DOCUMENTATION: JOB ID: [id number] [employer]- All Rights Reserved Reading location - IP/workstation name: [email or web address]
--- NOTE | 2017-11-16 23:20 | RADIOLOGY REPORT (SQ) ---
EXAM DESCRIPTION: HUMERUS RIGHT COMPLETED DATE/TIME: 11/16/2017 11:04 pm REASON FOR STUDY: fever, post op COMPARISON: 10/14/2017, 10/15/2017 right humerus images NUMBER OF VIEWS: Two views. TECHNIQUE: Two radiographic images were acquired of the right humerus to include elbow and shoulder in at least one projection. LIMITATIONS: None. FINDINGS: MINERALIZATION: Normal. BONES: Right humerus spiral fracture stabilized with a fixation plate and screws. Good alignment at the fracture site. There is slight medial displacement of a butterfly fragment. SOFT TISSUES: No obvious swelling or foreign body. OTHER: Limited view of the right shoulder and elbow are unremarkable IMPRESSION: Post ORIF right humeral diaphysis spiral fracture in good alignment. Minimal medial dis placement of a butterfly fragment TECHNICAL DOCUMENTATION: JOB ID: [id number]- All Rights Reserved Reading location - IP/workstation name: [email or web address]
[2017-11-16] MEDS ORDERED: ONDANSETRON ODT 4 MG TAB (6 TAB/ER DISP) PO PRN (23:45)
--- NOTE | 2017-11-17 07:14 | EKG REPORT ---
SEVERITY:- ABNORMAL ECG - SINUS TACHYCARDIA VENTRICULAR PREMATURE COMPLEX PROBABLE LEFT ATRIAL ABNORMALITY BORDERLINE T ABNORMALITIES, ANTERIOR LEADS : Confirmed by: Elian Elliott MD 17-Nov-2017 07:13:56
== END 2017-11-17 00:15 | disposition home or self-care (01) ==
LOC: ER 19:45
DX: M79.601 Pain in right arm (principal); Z98.890 Other specified postprocedural states; N39.0 Urinary tract infection, site not specified; R50.9 Fever, unspecified; R11.2 Nausea with vomiting, unspecified; Z87.892 Personal history of anaphylaxis; Z88.1 Allergy status to other antibiotic agents; Z88.5 Allergy status to narcotic agent; Z88.0 Allergy status to penicillin; R00.0 Tachycardia, unspecified
CPT/HCPCS: 96376; 99284; 96361; 96375; 96365; 36415; 87040; 87086; 85025; 81025; 87088; 80053; 81001; 87186; 83605; 93971; 71045; 73060; 93005; 93010; J3490; J1885; J1170 ×2; J0696; J2405; J7030

== ENCOUNTER 2017-11-28 07:23 | Emergency (ER) | payer MEDICAID, OTHER ==
--- NOTE | 2017-11-28 08:14 | ER Document Report ---
ED GI/ - General Chief Complaint: Vaginal Discharge Stated Complaint: VAGINAL PAIN Time Seen by Provider: 11/28/17 08:00 Mode of Arrival: Ambulatory Information source: Patient Notes: Patient is a 32-year-old female who presents to the ER today for redness to her vagina, white, thick discharge, skin tears on the outside of the vagina 2 days. Patient states that it wright when she urinates as well but she thinks "that is because it is overall." She states that she thinks she has a yeast infection because she was on antibiotics approximately 2 weeks ago. Patient states that has been itching. She is not concerned about any STDs that she has been in a not was marriage for 10 years. TRAVEL OUTSIDE OF THE [place] IN LAST 30 DAYS: No - Related Data Allergies/Adverse Reactions: clarithromycin [From Biaxin] Allergy (Severe, Verified 11/28/17 07:25) Anaphylaxis hydrocodone bitartrate [From Vicodin] Allergy (Severe, Verified 11/28/17 07:25) Anaphylaxis oxycodone HCl [From Percocet] Allergy (Severe, Verified 11/28/17 07:25) Anaphylaxis Penicillins Allergy (Severe, Verified 11/28/17 07:25) Anaphylaxis Past Medical History - General Information source: Patient - Social History Smoking Status: Unknown if Ever Smoked Family History: Reviewed & Not Pertinent, CAD, DM, Hyperlipidemia, Hypertension - Past Medical History Cardiac Medical History: Denies: Hx Coronary Artery Disease, Hx Heart Attack, Hx Hypertension Pulmonary Medical History: Denies: Hx Asthma, Hx Bronchitis, Hx COPD, Hx Pneumonia Neurological Medical History: Reports: Hx Migraine, Hx Seizures - febrile/last one as child. Denies: Hx Cerebrovascular Accident Renal/ Medical History: Reports: Hx Kidney Stones, Hx Peritoneal Dialysis GI Medical History: Reports: Hx Irritable Bowel Musculoskeltal Medical History: Denies Hx Arthritis Psychiatric Medical History: Reports: Hx Depression Traumatic Medical History: Reports: Hx Fractures Infectious Medical History: Denies: Hx C-Diff Past Surgical History: Reports: Hx Section - x4, Hx Cholecystectomy, Hx Hysterectomy, Hx Oral Surgery, Hx Orthopedic Surgery, Hx Tonsillectomy, Hx Tubal Ligation - Immunizations Immunizations up to date: Yes Hx Diphtheria, Pertussis, Tetanus Vaccination: Yes Review of Systems - Review of Systems Constitutional: No symptoms reported EENT: No symptoms reported Cardiovascular: No symptoms reported Respiratory: No symptoms reported Gastrointestinal: No symptoms reported Genitourinary: No symptoms reported Female Genitourinary: See HPI Musculoskeletal: No symptoms reported Skin: No symptoms reported Hematologic/Lymphatic: No symptoms reported Neurological/Psychological: No symptoms reported Physical Exam - Vital signs Vitals: Temp Pulse Resp BP Pulse Ox 98.0 F 106 H 16 144/94 H 98 11/28/17 07:32 11/28/17 07:32 11/28/17 07:32 11/28/17 07:32 11/28/17 07:32 - Notes Notes: PHYSICAL EXAMINATION: GENERAL: Well-appearing and in no acute distress. HEAD: Atraumatic, normocephalic. EYES: Pupils equal round and reactive to light, extraocular movements intact, sclera anicteric, conjunctiva are normal. NECK: Normal range of motion, supple without lymphadenopathy LUNGS: CTAB and equal. No wheezes rales or rhonchi. HEART: Regular rate and rhythm without murmurs ABDOMEN: Soft, no tenderness. No guarding, no rebound pelvic: erythema to labia minora and majora Without rash otherwise, white, thick , curdy discharge with multiple long skin tears to the labia minora BACK: no vertebral tenderness, normal ROM GI/: no CVA tenderness EXTREMITIES: Normal range of motion, no pitting edema. No cyanosis. NEUROLOGICAL: Cranial nerves grossly intact. Normal sensory/motor exams. PSYCH: Normal mood, normal affect. SKIN: Warm, Dry, normal turgor, no rashes or lesions noted Course - Re-evaluation Re-evalutation: 11/28/17 09:40 Patient cannot tolerate pelvic exam with speculum, swabs were obtained just on the inside of the vagina and labia minora due to patient's intolerance of exam. 3+ bacteria seen on wet mount, no yeast. - Vital Signs Vital signs: Temp Pulse Resp BP Pulse Ox 98.0 F 106 H 16 144/94 H 98 11/28/17 07:32 11/28/17 07:32 11/28/17 07:32 11/28/17 07:32 11/28/17 07:32 Discharge - Discharge Clinical Impression: Bacterial vaginosis Condition: Stable Disposition: HOME, SELF-CARE Additional Instructions: Return immediately for any new or worsening symptoms. Follow up with primary care provider, call tomorrow to make followup appointment. Prescriptions: Fluconazole [Diflucan] 150 mg PO ONCE PRN #1 tablet PRN Reason: Lidocaine 5 gm TP Q2H PRN #1 cream..g. PRN Reason: Metronidazole [Flagyl] 500 mg PO BID #14 tablet Forms: Return to Work
[2017-11-28 09:25] LABS: BACTERIA (WET MOUNT) 3+ BACTERIA SEEN; EPITHELIALS (WET MOUNT) 3+ EPITHELIALS SEEN; RBCS (WET MOUNT) 1+ RBCS SEEN; T.VAGINALIS (WET MOUNT) NO TRICHOMONAS SEEN; WBCS (WET MOUNT) 1+ WBCS SEEN; YEAST (WET MOUNT) NO YEAST SEEN
[2017-11-28] MEDS ORDERED: LIDOCAINE 2% JELLY 5 ML TUBE TOP ONE (09:37)
[2017-11-28 10:11] VITALS: BP 130/98
[2017-11-28 10:50] LABS: CHLAM PCR NOT DETECTED (NOT DETECT); GON PCR NOT DETECTED (NOT DETECT)
[2017-11-28 13:06] LABS: AMORPHOUS SEDIMENT,URINE TRACE /HPF; APPEARANCE,URINE CLOUDY; BILIRUBIN,URINE NEGATIVE (NEGATIVE); GLUCOSE, URINE NEGATIVE (NEGATIVE); KETONES,URINE NEGATIVE (NEGATIVE); LEUKOCYTE ESTERASE,URINE NEGATIVE (NEGATIVE); NITRITE,URINE NEGATIVE (NEGATIVE); PROTEIN,URINE NEGATIVE (NEGATIVE); URINE SPECIFIC GRAVITY 1.016; UROBILINOGEN,URINE NEGATIVE mg/dL (<2.0)
[2017-11-28 13:08] LABS: COLOR,URINE YELLOW
== END 2017-11-28 10:11 | disposition home or self-care (01) ==
LOC: ER 07:23
DX: N76.0 Acute vaginitis (principal); B96.89 Other specified bacterial agents as the cause of diseases classified elsewhere; Z88.3 Allergy status to other anti-infective agents; Z88.0 Allergy status to penicillin; Z87.442 Personal history of urinary calculi; Z90.49 Acquired absence of other specified parts of digestive tract; Z90.710 Acquired absence of both cervix and uterus
CPT/HCPCS: 99283; 87210; 81025; 81001; 87491; 87591; J3490

== ENCOUNTER 2017-11-29 23:07 | Emergency (ER) | payer MEDICAID ==
[2017-11-29 23:19] VITALS: BP 123/95
--- NOTE | 2017-11-30 00:51 | ER Document Report ---
ED Extremity Problem, Upper - General Chief Complaint: Arm Pain Stated Complaint: POST OP ARM PAIN Time Seen by Provider: 11/30/17 00:27 Mode of Arrival: Ambulatory Information source: Patient TRAVEL OUTSIDE OF THE [place] IN LAST 30 DAYS: No - HPI Patient complains to provider of: Pain Notes: Patient is here with complaints of arm pain. Patient sustained significant injury to her humerus a few months ago and has had prior surgery by Dr. Castellanos to the arm. She is that she always has pain in this arm. She has not been taking anything for pain, because she states that she "does not want to get hooked on pain pills and has to drive and take care of children ". She denies any increase in her pain today. She denies any increased swelling, numbness, tingling, weakness. She states that she was at a bar, not drinking, but she was there for a friend's birthday alliance party when she had a little bit of a headache and felt like her vision was somewhat blurred. She was told by a "dress finisher "that she should come to the hospital to be checked. Patient denies any headache or blurred vision currently. She states that she thinks is because she was tired and it was time for her to take her Ambien. She states that this happens to her at times. She currently denies any nausea, vomiting, diarrhea. She denies any unilateral numbness, Kait, weakness. She denies any other complaints at this time. - Related Data Allergies/Adverse Reactions: clarithromycin [From Biaxin] Allergy (Severe, Verified 11/28/17 07:25) Anaphylaxis hydrocodone bitartrate [From Vicodin] Allergy (Severe, Verified 11/28/17 07:25) Anaphylaxis oxycodone HCl [From Percocet] Allergy (Severe, Verified 11/28/17 07:25) Anaphylaxis Penicillins Allergy (Severe, Verified 11/28/17 07:25) Anaphylaxis Past Medical History - Social History Smoking Status: Current Every Day Smoker Family History: Reviewed & Not Pertinent, CAD, DM, Hyperlipidemia, Hypertension - Past Medical History Cardiac Medical History: Denies: Hx Coronary Artery Disease, Hx Heart Attack, Hx Hypertension Pulmonary Medical History: Denies: Hx Asthma, Hx Bronchitis, Hx COPD, Hx Pneumonia Neurological Medical History: Reports: Hx Migraine, Hx Seizures - febrile/last one as child. Denies: Hx Cerebrovascular Accident Renal/ Medical History: Reports: Hx Kidney Stones, Hx Peritoneal Dialysis GI Medical History: Reports: Hx Irritable Bowel Musculoskeltal Medical History: Denies Hx Arthritis Psychiatric Medical History: Reports: Hx Depression Traumatic Medical History: Reports: Hx Fractures Infectious Medical History: Denies: Hx C-Diff Past Surgical History: Reports: Hx Section - x4, Hx Cholecystectomy, Hx Hysterectomy, Hx Oral Surgery, Hx Orthopedic Surgery, Hx Tonsillectomy, Hx Tubal Ligation - Immunizations Immunizations up to date: Yes Hx Diphtheria, Pertussis, Tetanus Vaccination: Yes Review of Systems - Review of Systems -: Yes All other systems reviewed and negative Physical Exam - Vital signs Vitals: Temp Pulse Resp BP Pulse Ox 98 F 87 18 123/95 H 99 11/29/17 23:18 11/29/17 23:18 11/29/17 23:18 11/29/17 23:18 11/29/17 23:18 - Notes Notes: GENERAL: alert, cooperative, nontoxic, no distress. HEAD: normocephalic, atraumatic EYES: conjunctiva pink without discharge, no external redness or swelling. Pupils are equal, round, reactive to light. EARS: no external swelling, no external redness NOSE: atraumatic, no external swelling MOUTH/THROAT: mucous membranes moist and pink, posterior pharynx without erythema, swelling, exudate. No trismus or drooling. NECK: soft, supple, full range of motion, no meningismus. CHEST: no distress, lungs clear and equal throughout. No wheezing, rales, rhonchi. CARDIAC: regular rate and rhythm, no murmur, normal capillary refill, normal pulses. No peripheral edema noted. BACK: full range of motion, no CVA tenderness. EXTREMITIES: Long healed postoperative incision to the right upper arm. There is no surrounding redness, swelling or drainage. Mild tenderness to palpation around this area. She has limited range of motion of the elbow. There is no redness or increased heat to touch. Forearm appears normal. Normal pulse and sensation distally. NEURO: alert and oriented x 3, cranial nerves II through XII are grossly intact. Upper and lower extremities are equal throughout. Normal sensation. No focal deficits, full range of motion of all extremities. normal finger to nose. PYSCH: appropriate mood, affect. Patient is cooperative. SKIN: pink, warm, dry, no rash. Course - Re-evaluation Re-evalutation: 11/30/17 00:49 Patient is nontoxic appearing with stable vitals. Skin the ER with 2 complaints 1 pain headache and blurred vision, the other being postoperative pain. The postoperative pain is no different than it normally is. She has not been running any fevers and has no signs of infection. There is no sign of DVT. She was recently here and had a venous Doppler that showed no DVT. She had no recent falls or injuries. I do not think that repeat x-rays would be of any benefit at this time. I offered to repeat her venous Doppler, she declined to have that done at this time. She was also complaining of having a headache and blurred vision earlier, she states that this is completely resolved at this time. She has a normal neurological exam at this time. She states that she thinks this is because it was time for her to take her Ambien and that this is happened in the past. Offered further evaluation of these symptoms, she declines to have that done at this time either. She states that the only reason that she came to the emergency department tonight was because the Corman at the [facility] told her that she needed to come and be evaluated and "when they tell you to do that, you listen." Think the patient can be discharged home at this time with instructions to follow-up with Dr. Castellanos as scheduled. Follow- up sooner for increasing pain, fever, swelling, numbness, tingling, weakness, any further concerns. 11/30/17 00:52 The patient is noted to have elevated blood pressure during today's emergency department visit. The patient was informed of this finding. The patient was instructed that this may be related to pre-hypertension and requires further evaluation with a primary care provider. The patient has no hypertensive symptoms at this time. The patient's emergency department workup and current diagnosis were explained to the patient and or family. Follow-up instructions were provided. Medications if prescribed were discussed. Instructions for when to return to the emergency department including specific worrisome symptoms were discussed with the patient and/or family. - Vital Signs Vital signs: Temp Pulse Resp BP Pulse Ox 98 F 87 18 123/95 H 99 11/29/17 23:18 11/29/17 23:18 04/07/18 23:18 11/29/17 23:18 11/29/17 23:18 Discharge - Discharge Clinical Impression: Post-op pain Headache Qualifiers: Headache type: unspecified Headache chronicity pattern: episodic headache Intractability: not intractable Qualified Code(s): R51 - Headache Condition: Stable Disposition: HOME, SELF-CARE Instructions: Chronic Pain Control ([facility]) Additional Instructions: Take medication as needed for your pain. Follow-up with your orthopedist at the next available appointment. Follow-up sooner for worsening pain, high fever , persistent vomiting, numbness, tingling, weakness, any further concerns. Your blood pressure was elevated during today's visit. Have this rechecked with your doctor. Forms: Elevated Blood Pressure, Smoking Cessation Education Referrals: VIVEK THORNTON FNP-C [Primary Care Provider] - Follow up as needed NICOLASA CASTELLANOS MD [ACTIVE STAFF] - Follow up as needed
== END 2017-11-30 00:58 | disposition home or self-care (01) ==
LOC: ER 23:07
DX: G89.18 Other acute postprocedural pain (principal); R51 Headache; H53.8 Other visual disturbances; Z98.890 Other specified postprocedural states; F17.200 Nicotine dependence, unspecified, uncomplicated
CPT/HCPCS: 99283

== ENCOUNTER 2018-01-04 20:49 | Emergency (ER) | payer OTHER, MEDICAID ==
[2018-01-04 21:01] VITALS: BP 125/95
--- NOTE | 2018-01-04 21:31 | RADIOLOGY REPORT (SQ) ---
EXAM DESCRIPTION: HUMERUS RIGHT COMPLETED DATE/TIME: 01/04/2018 9:11 pm REASON FOR STUDY: Pain s/p injury COMPARISON: 11/16/2017 NUMBER OF VIEWS: Two views. TECHNIQUE: Two radiographic images were acquired of the right humerus to include elbow and shoulder in at least one projection. LIMITATIONS: None. FINDINGS: MINERALIZATION: Normal. BONES: Internal fixation of remote fracture. No acute fracture. Hardware intact. SOFT TISSUES: No obvious swelling or foreign body. OTHER: No other significant finding. IMPRESSION: Hardware intact. No acute fracture. TECHNICAL DOCUMENTATION: JOB ID: [id number] [employer]- All Rights Reserved Reading location - IP/workstation name: [email or web address]
--- NOTE | 2018-01-04 21:46 | ER Document Report ---
HPI - HPI Patient complains to provider of: arm pain Onset: This afternoon Onset/Duration: Sudden Quality of pain: Sharp Pain Level: 4 Context: Patient has a history of an ORIF to the right humerus performed in September of this year. Patient was swimming in the pool this afternoon and her son accidentally kicked her in the arm. Patient complains of increased arm pain since then. Associated Symptoms: Other - Right arm pain. denies: Weakness Exacerbated by: Movement Relieved by: Denies Similar symptoms previously: Yes Recently seen / treated by doctor: No - ROS ROS below otherwise negative: Yes Systems Reviewed and Negative: Yes All other systems reviewed and negative - CONSTITUTIONAL Constitutional: DENIES: Fever - CARDIOVASCULAR Cardiovascular: DENIES: Chest pain - RESPIRATORY Respiratory: DENIES: Trouble Breathing, Coughing - GASTROINTESTINAL Gastrointestinal: DENIES: Nausea - REPRODUCTIVE Reproductive: DENIES: : - MUSCULOSKELETAL Musculoskeletal: REPORTS: Extremity pain - DERM Skin Color: Normal Skin Problems: None Past Medical History - General Information source: Patient - Social History Smoking Status: Never Smoker Frequency of alcohol use: None Drug Abuse: None Occupation: None Lives with: Family Family History: Reviewed & Not Pertinent, CAD, DM, Hyperlipidemia, Hypertension - Past Medical History Cardiac Medical History: Denies: Hx Coronary Artery Disease, Hx Heart Attack, Hx Hypertension Pulmonary Medical History: Denies: Hx Asthma, Hx Bronchitis, Hx COPD, Hx Pneumonia Neurological Medical History: Reports: Hx Migraine, Hx Seizures - febrile/last one as child. Denies: Hx Cerebrovascular Accident Renal/ Medical History: Reports: Hx Kidney Stones, Hx Peritoneal Dialysis GI Medical History: Reports: Hx Irritable Bowel Musculoskeltal Medical History: Denies Hx Arthritis Psychiatric Medical History: Reports: Hx Depression Traumatic Medical History: Reports: Hx Fractures Infectious Medical History: Denies: Hx C-Diff Past Surgical History: Reports: Hx Section - x4, Hx Cholecystectomy, Hx Hysterectomy, Hx Oral Surgery, Hx Orthopedic Surgery, Hx Tonsillectomy, Hx Tubal Ligation - Immunizations Immunizations up to date: Yes Hx Diphtheria, Pertussis, Tetanus Vaccination: Yes Vertical Provider Document - CONSTITUTIONAL Agree With Documented VS: Yes Exam Limitations: No Limitations General Appearance: WD/WN, No Apparent Distress - INFECTION CONTROL TRAVEL OUTSIDE OF THE [place] IN LAST 30 DAYS: No - HEENT HEENT: Atraumatic, Normocephalic - NECK Neck: Normal Inspection - RESPIRATORY Respiratory: Breath Sounds Normal, No Respiratory Distress - CARDIOVASCULAR Cardiovascular: Regular Rate, Regular Rhythm Pulses: Normal: Radial - BACK Back: Normal Inspection - MUSCULOSKELETAL/EXTREMETIES Musculoskeletal/Extremeties: MAEW, Tender - Midshaft, distal third tenderness to right upper arm, muscle compartments soft, No Edema - NEURO Level of Consciousness: Awake, Alert, Appropriate Notes: Patient unable to fully extend right elbow - DERM Integumentary: Warm, Dry, No Rash Course - Re-evaluation Re-evalutation: 01/04/18 21:50 Patient without any evidence of hardware failure. No concern for compartment syndrome. patient does have pain medication at home. Patient encouraged to follow-up with her orthopedic doctor for a recheck. 01/05/18 02:10 - Vital Signs Vital signs: Temp Pulse Resp BP Pulse Ox 98.8 F 93 20 125/95 H 98 01/04/18 21:00 01/04/18 21:00 01/04/18 21:00 01/04/18 21:00 01/04/18 21:00 - Diagnostic Test Radiology reviewed: Image reviewed, Reports reviewed - Viewed patient's previous x-ray Discharge - Discharge Clinical Impression: Right arm pain Condition: Stable Disposition: HOME, SELF-CARE Additional Instructions: Return immediately for any new or worsening symptoms Followup with your primary care provider, call tomorrow to make a followup appointment Follow-up with your orthopedic surgeon for recheck Take your pain medication that you have at home as prescribed Referrals: NICOLASA CASTELLANOS MD [ACTIVE STAFF] - Follow up in 3-5 days
== END 2018-01-04 22:05 | disposition home or self-care (01) ==
LOC: ER 20:49
DX: M79.601 Pain in right arm (principal); Z90.49 Acquired absence of other specified parts of digestive tract; Z90.710 Acquired absence of both cervix and uterus; Z87.442 Personal history of urinary calculi
CPT/HCPCS: 99283

== ENCOUNTER 2018-01-11 20:15 | Emergency (ER) | payer OTHER, MEDICAID ==
[2018-01-11] MEDS ORDERED: KETOROLAC TROMETHAMINE 60 MG/2 ML SDV IM ONE (21:20)
--- NOTE | 2018-01-11 22:25 | ER Document Report ---
ED Extremity Problem, Upper - General Chief Complaint: Arm Pain Stated Complaint: ARM PAIN Time Seen by Provider: 01/11/18 21:10 Mode of Arrival: Ambulatory Information source: Patient Notes: Patient is a 32-year-old female who is well-known to this emergency department for pain complaints who presents to the ER today for right arm pain after she broke her humerus in October of this year. Patient had surgery to repair her humerus. Patient denies any injury since that time, states that the orthopedic surgeon will not give her pain medication but that she is "in pain daily." Patient denies any redness, fevers or chills, states that she takes ibuprofen at home for pain. TRAVEL OUTSIDE OF THE [place] IN LAST 30 DAYS: No - Related Data Allergies/Adverse Reactions: clarithromycin [From Biaxin] Allergy (Severe, Verified 01/11/18 20:21) Anaphylaxis hydrocodone bitartrate [From Vicodin] Allergy (Severe, Verified 01/11/18 20:21) Anaphylaxis oxycodone HCl [From Percocet] Allergy (Severe, Verified 01/11/18 20:21) Anaphylaxis Penicillins Allergy (Severe, Verified 01/11/18 20:21) Anaphylaxis Past Medical History - General Information source: Patient - Social History Smoking Status: Current Every Day Smoker Chew tobacco use (# tins/day): No Frequency of alcohol use: Social Drug Abuse: None Family History: Reviewed & Not Pertinent, CAD, DM, Hyperlipidemia, Hypertension Patient has suicidal ideation: No Patient has homicidal ideation: No - Past Medical History Cardiac Medical History: Denies: Hx Coronary Artery Disease, Hx Heart Attack, Hx Hypertension Pulmonary Medical History: Denies: Hx Asthma, Hx Bronchitis, Hx COPD, Hx Pneumonia Neurological Medical History: Reports: Hx Migraine, Hx Seizures - febrile/last one as child. Denies: Hx Cerebrovascular Accident Renal/ Medical History: Reports: Hx Kidney Stones. Denies: Hx Peritoneal Dialysis GI Medical History: Reports: Hx Irritable Bowel Musculoskeltal Medical History: Denies Hx Arthritis Psychiatric Medical History: Reports: Hx Depression Traumatic Medical History: Reports: Hx Fractures Infectious Medical History: Denies: Hx C-Diff Past Surgical History: Reports: Hx Section - x4, Hx Cholecystectomy, Hx Hysterectomy, Hx Oral Surgery, Hx Orthopedic Surgery, Hx Tonsillectomy, Hx Tubal Ligation - Immunizations Immunizations up to date: Yes Hx Diphtheria, Pertussis, Tetanus Vaccination: Yes Review of Systems - Review of Systems Constitutional: No symptoms reported EENT: No symptoms reported Cardiovascular: No symptoms reported Respiratory: No symptoms reported Gastrointestinal: No symptoms reported Genitourinary: No symptoms reported Female Genitourinary: No symptoms reported Musculoskeletal: See HPI Skin: No symptoms reported Hematologic/Lymphatic: No symptoms reported Neurological/Psychological: No symptoms reported Physical Exam - Vital signs Vitals: Temp Pulse Resp BP Pulse Ox 98.4 F 86 18 129/100 H 98 01/11/18 20:38 01/11/18 20:38 01/11/18 20:38 01/11/18 20:38 01/11/18 20:38 - Notes Notes: PHYSICAL EXAMINATION: GENERAL: Angry, but in no acute distress. HEAD: Atraumatic, normocephalic. EYES: Pupils equal round and reactive to light, extraocular movements intact, sclera anicteric, conjunctiva are normal. NECK: Normal range of motion, supple without lymphadenopathy LUNGS: CTAB and equal. No wheezes rales or rhonchi. HEART: Regular rate and rhythm without murmurs EXTREMITIES: Tender to right humerus, otherwise normal range of motion, no pitting edema. No cyanosis. NEUROLOGICAL: Cranial nerves grossly intact. Normal sensory/motor exams. PSYCH: Normal mood, normal affect. SKIN: Warm, Dry, normal turgor, large scar noted to right humerus, well-healed, no rashes or lesions noted Course - Re-evaluation Re-evalutation: 01/11/18 22:25 01/12/18 02:18 X-ray is negative for any acute pathology, appears the same as the x-ray post surgery in October. Patient was given anti-inflammatory for pain but was advised that we will not give her narcotic pain medication for chronic pain and she needs to see her orthopedic surgeon if she is having daily pain. Patient was very angry from the second I entered the room, had a very bad attitude towards me even before I introduced myself. She is very hostile at baseline. - Vital Signs Vital signs: Temp Pulse Resp BP Pulse Ox 97.8 F 83 17 130/88 H 100 01/11/18 23:20 01/11/18 23:20 01/11/18 23:20 01/11/18 23:20 01/11/18 23:20 Discharge - Discharge Clinical Impression: Right arm pain Condition: Stable Disposition: HOME, SELF-CARE Additional Instructions: Return immediately for any new or worsening symptoms. Follow up with orthopedic doctor, call tomorrow to make followup appointment. Prescriptions: Meloxicam [Mobic] 15 mg PO DAILY #30 tablet Referrals: JEFFREY DAVALOS DO [Primary Care Provider] - Follow up as needed NICOLASA CASTELLANOS MD [ACTIVE STAFF] - Follow up as needed
--- NOTE | 2018-01-11 23:05 | RADIOLOGY REPORT (SQ) ---
EXAM DESCRIPTION: HUMERUS RIGHT COMPLETED DATE/TIME: 01/11/2018 10:00 pm REASON FOR STUDY: right arm pain COMPARISON: 01/04/2018 NUMBER OF VIEWS: Three views TECHNIQUE: Two radiographic images were acquired of the right humerus to include elbow and shoulder in at least one projection. LIMITATIONS: None. FINDINGS: Similar postsurgical changes in the distal right humerus with comminuted fracture site sta ble appearing. OTHER: No other significant finding. IMPRESSION: Similar postsurgical changes in the distal right humerus with comminuted fracture site s table appearing. TECHNICAL DOCUMENTATION: JOB ID: [id number] [id number] 2010 [employer]- All Rights Reserved Reading location - IP/workstation name: [email or web address]
[2018-01-11 23:37] VITALS: BP 130/88
== END 2018-01-11 23:20 | disposition home or self-care (01) ==
LOC: ER 20:15
DX: M79.601 Pain in right arm (principal); Z98.890 Other specified postprocedural states; F17.200 Nicotine dependence, unspecified, uncomplicated
CPT/HCPCS: 99283; 96372; 73060; J1885

== ENCOUNTER 2018-01-20 11:46 | Emergency (ER) | payer MEDICAID, OTHER ==
[2018-01-20] MEDS ORDERED: PROCHLORPERAZINE EDISYLATE INJ 10 MG/2 ML VIAL IV ONE (12:20)
[2018-01-20] MEDS ORDERED: KETOROLAC TROMETHAMINE INJ/PF 30 MG/1 ML SDV IV ONE (12:20)
[2018-01-20] MEDS ORDERED: DIPHENHYDRAMINE HCL 50 MG/ML VIAL IV ONE (12:20)
[2018-01-20] MEDS ORDERED: NORMAL SALINE 1000 ML 1,000 ML IV ONE (12:21)
--- NOTE | 2018-01-20 12:23 | ER Document Report ---
ED Headache - General Chief Complaint: Headache Stated Complaint: POSSIBLE HIGH BLOOD PRESSURE Time Seen by Provider: 01/20/18 12:10 Notes: Chief complaint: Headache History of complain:( obtained from----patient) 32 years old female with a history of migraine headaches presents today with another episode of headache described as throbbing, global, associated with nausea no vomiting. No fever chills or other constitutional symptoms. Do not know what triggers. No prodromal symptoms. No numbness tingling sensation or weakness. Onset: Sudden Duration: Last few hours Severity: Moderate to severe Quality: Sharp Context: Unknown Exacerbating factor and relieving factors: Nothing REVIEW OF SYSTEMS: CONSTITUTIONAL : Denies fever, chills, or sweats. Denies recent illness. EENT: Denies eye, ear, throat, or mouth pain or symptoms. Denies nasal or sinus congestion or discharge. Denies throat, tongue, or mouth swelling or difficulty swallowing. CARDIOVASCULAR: Denies chest pain. Denies palpitations or racing or irregular heart beat. Denies ankle edema. RESPIRATORY: Denies cough, cold, or chest congestion. Denies shortness of breath, difficulty breathing, or wheezing. GASTROINTESTINAL: Denies distention. Denies nausea, vomiting, or diarrhea. Denies blood in vomitus, stools, or per rectum. Denies black, tarry stools. Denies constipation. GENITOURINARY: Denies difficulty urinating, painful urination, burning, frequency, blood in urine, or discharge. FEMALE GENITOURINARY: Denies vaginal bleeding, heavy or abnormal periods, irregular periods. Denies vaginal discharge or odor. MUSCULOSKELETAL: Denies back or neck pain or stiffness. Denies joint pain or swelling. SKIN: Denies rash, lesions or sores. HEMATOLOGIC : Denies easy bruising or bleeding. LYMPHATIC: Denies swollen, enlarged glands. NEUROLOGICAL: Denies confusion or altered mental status. Denies passing out or loss of consciousness. Denies dizziness or lightheadedness. Denies headache. Denies weakness or paralysis or loss of use of either side. Denies problems with gait or speech. Denies sensory loss, numbness, or tingling. Denies seizures. PSYCHIATRIC: Denies anxiety or stress. Denies depression, suicidal ideation, or homicidal ideation. ALL OTHER SYSTEMS REVIEWED AND NEGATIVE. PHYSICAL EXAMINATION: GENERAL: Well-appearing, well-nourished and in no acute distress. HEAD: Atraumatic, normocephalic. EYES: Pupils equal round and reactive to light, extraocular movements intact, conjunctiva are normal. ENT: Nares patent, oropharynx clear without exudates. Moist mucous membranes. NECK: Normal range of motion, supple without lymphadenopathy LUNGS: Breath sounds clear to auscultation bilaterally and equal. No wheezes rales or rhonchi. HEART: Regular rate and rhythm without murmurs ABDOMEN: Soft, nontender, nondistended abdomen. No guarding, no rebound. No masses appreciated. Examination of genitals-deferred Musculoskeletal: Normal range of motion, no pitting or edema. No cyanosis. NEUROLOGICAL: Cranial nerves grossly intact. Normal speech, normal gait. Normal sensory, motor exams PSYCH: Normal mood, normal affect. SKIN: Warm, Dry, normal turgor, no rashes or lesions noted. Dictation was performed using [employer] voice recognition software TRAVEL OUTSIDE OF THE [place] IN LAST 30 DAYS: No - Related Data Allergies/Adverse Reactions: clarithromycin [From Biaxin] Allergy (Severe, Verified 01/11/18 20:21) Anaphylaxis hydrocodone bitartrate [From Vicodin] Allergy (Severe, Verified 01/11/18 20:21) Anaphylaxis oxycodone HCl [From Percocet] Allergy (Severe, Verified 01/11/18 20:21) Anaphylaxis Penicillins Allergy (Severe, Verified 01/11/18 20:21) Anaphylaxis Past Medical History - Social History Smoking Status: Never Smoker Chew tobacco use (# tins/day): No Frequency of alcohol use: None Drug Abuse: None Family History: Reviewed & Not Pertinent, CAD, DM, Hyperlipidemia, Hypertension Patient has suicidal ideation: No Patient has homicidal ideation: No - Past Medical History Cardiac Medical History: Denies: Hx Coronary Artery Disease, Hx Heart Attack, Hx Hypertension Pulmonary Medical History: Denies: Hx Asthma, Hx Bronchitis, Hx COPD, Hx Pneumonia Neurological Medical History: Reports: Hx Migraine, Hx Seizures - febrile/last one as child. Denies: Hx Cerebrovascular Accident Renal/ Medical History: Reports: Hx Kidney Stones. Denies: Hx Peritoneal Dialysis GI Medical History: Reports: Hx Irritable Bowel Musculoskeltal Medical History: Denies Hx Arthritis Psychiatric Medical History: Reports: Hx Depression Traumatic Medical History: Reports: Hx Fractures Infectious Medical History: Denies: Hx C-Diff Past Surgical History: Reports: Hx Section - x4, Hx Cholecystectomy, Hx Hysterectomy, Hx Oral Surgery, Hx Orthopedic Surgery, Hx Tonsillectomy, Hx Tubal Ligation - Immunizations Immunizations up to date: Yes Hx Diphtheria, Pertussis, Tetanus Vaccination: Yes Review of Systems - Review of Systems Notes: Dictated Physical Exam - Vital signs Vitals: Temp Pulse Resp BP Pulse Ox 99.2 F 97 14 120/94 H 99 01/20/18 11:57 01/20/18 11:57 01/20/18 11:57 01/20/18 11:57 01/20/18 11:57 - Notes Notes: Dictated Course - Re-evaluation Re-evalutation: 01/20/18 13:29 She was given a migraine cocktail and feeling much better headache subsided. - Vital Signs Vital signs: Temp Pulse Resp BP Pulse Ox 99.2 F 97 14 120/90 H 99 01/20/18 11:57 01/20/18 11:57 01/20/18 11:57 01/20/18 12:11 01/20/18 11:57 Discharge - Discharge Clinical Impression: Migraine aura without headache Condition: Fair Instructions: Headache ([facility])
[2018-01-20 13:38] VITALS: BP 144/94
== END 2018-01-20 13:39 | disposition home or self-care (01) ==
LOC: ER 11:46
DX: G43.109 Migraine with aura, not intractable, without status migrainosus (principal); R11.0 Nausea; Z87.892 Personal history of anaphylaxis; Z88.1 Allergy status to other antibiotic agents; Z88.5 Allergy status to narcotic agent; Z88.0 Allergy status to penicillin
CPT/HCPCS: 99283; 96374; 96375; J1200; J1885; J0780; J7030

== ENCOUNTER 2018-02-23 21:30 | Emergency (ER) | payer MEDICAID ==
[2018-02-23 21:44] VITALS: BP 119/80
--- NOTE | 2018-02-23 22:26 | RADIOLOGY REPORT (SQ) ---
EXAM DESCRIPTION: HUMERUS RIGHT COMPLETED DATE/TIME: 02/23/2018 10:12 pm REASON FOR STUDY: Pain s/p injury. Hx of surgery 10/15/17 COMPARISON: 01/11/2018 NUMBER OF VIEWS: Two views. TECHNIQUE: Two radiographic images were acquired of the right humerus to include elbow and shoulder in at least one projection. LIMITATIONS: None. FINDINGS: MINERALIZATION: Normal. BONES: Internal fixation of prior distal humeral fracture. Bridging callus is present. A large comp ression plate is present. SOFT TISSUES: No obvious swelling or foreign body. OTHER: No other significant finding. IMPRESSION: Surgical changes stable. TECHNICAL DOCUMENTATION: JOB ID: [id number] [employer]- All Rights Reserved Reading location - IP/workstation name: [email or web address]
[2018-02-23] MEDS ORDERED: LIDOCAINE 5% (700 MG) TRANSDERMAL ADH..PATCH TP ONE (23:09)
[2018-02-23] MEDS ORDERED: NAPROXEN 250 MG TABLET PO ONE (23:09)
[2018-02-23] MEDS ORDERED: ACETAMINOPHEN 325 MG TABLET PO ONE (23:10)
[2018-02-23] MEDS ORDERED: TRAMADOL HCL 50 MG TABLET PO ONE (23:10)
--- NOTE | 2018-02-23 23:13 | ER Document Report ---
ED General - General Chief Complaint: Arm Injury Stated Complaint: ARM PAIN Time Seen by Provider: 02/23/18 23:02 Notes: Patient is a 32-year-old female who presents with 12 hours of right shoulder and arm pain. She states that this started after she had a blood pressure cuff on her right arm while donating plasma. She states after finishing the plasma donation she began to have a throbbing, aching, constant pain to the right humerus, right shoulder, right trapezius area. She states the pain has been worsening since onset. Any movement of the right arm or shoulder worsens the pain. Nothing proves the pain. She denies history of similar pain in the past. She denies any additional trauma or injury to the area other than the application of the blood pressure cuff to the area. She has not yet followed up with her orthopedic doctor or primary care doctor regarding today's concerns. She denies any focal weakness or numbness. TRAVEL OUTSIDE OF THE [place] IN LAST 30 DAYS: No - Related Data Allergies/Adverse Reactions: clarithromycin [From Biaxin] Allergy (Severe, Verified 01/11/18 20:21) Anaphylaxis hydrocodone bitartrate [From Vicodin] Allergy (Severe, Verified 01/11/18 20:21) Anaphylaxis oxycodone HCl [From Percocet] Allergy (Severe, Verified 01/11/18 20:21) Anaphylaxis Penicillins Allergy (Severe, Verified 01/11/18 20:21) Anaphylaxis Past Medical History - General Information source: Patient - Social History Smoking Status: Current Every Day Smoker Chew tobacco use (# tins/day): No Frequency of alcohol use: Occasional Drug Abuse: None Lives with: Spouse/Significant other Family History: Reviewed & Not Pertinent, CAD, DM, Hyperlipidemia, Hypertension Patient has suicidal ideation: No Patient has homicidal ideation: No - Past Medical History Cardiac Medical History: Denies: Hx Coronary Artery Disease, Hx Heart Attack, Hx Hypertension Pulmonary Medical History: Denies: Hx Asthma, Hx Bronchitis, Hx COPD, Hx Pneumonia Neurological Medical History: Reports: Hx Migraine, Hx Seizures - febrile/last one as child. Denies: Hx Cerebrovascular Accident Renal/ Medical History: Reports: Hx Kidney Stones. Denies: Hx Peritoneal Dialysis GI Medical History: Reports: Hx Irritable Bowel Musculoskeltal Medical History: Denies Hx Arthritis Psychiatric Medical History: Reports: Hx Depression Traumatic Medical History: Reports: Hx Fractures Infectious Medical History: Denies: Hx C-Diff Past Surgical History: Reports: Hx Section - x4, Hx Cholecystectomy, Hx Hysterectomy, Hx Oral Surgery, Hx Orthopedic Surgery, Hx Tonsillectomy, Hx Tubal Ligation - Immunizations Immunizations up to date: Yes Hx Diphtheria, Pertussis, Tetanus Vaccination: Yes Review of Systems - Review of Systems Notes: Constitutional: Negative for fever. HENT: Negative for sore throat. Eyes: Negative for visual changes. Cardiovascular: Negative for chest pain. Respiratory: Negative for shortness of breath. Gastrointestinal: Negative for abdominal pain, vomiting or diarrhea. Genitourinary: Negative for dysuria. Musculoskeletal: Positive for right shoulder pain and right trapezius pain Skin: Negative for rash. Neurological: Negative for headaches, weakness or numbness. 10 point ROS negative except as marked above and in HPI. Physical Exam - Vital signs Vitals: Temp Pulse Resp BP Pulse Ox 98.3 F 98 16 119/80 98 02/23/18 21:42 02/23/18 21:42 02/23/18 21:42 02/23/18 21:42 02/23/18 21:42 Interpretation: Normal Notes: PHYSICAL EXAMINATION: GENERAL: Appears mildly uncomfortable but in no acute distress HEAD: Atraumatic, normocephalic. EYES: Pupils equal round and reactive to light, extraocular movements intact, sclera anicteric, conjunctiva are normal. ENT: nares patent, oropharynx clear without exudates. Moist mucous membranes. NECK: Normal range of motion, supple without lymphadenopathy LUNGS: Breath sounds clear to auscultation bilaterally and equal. No wheezes rales or rhonchi. HEART: Regular rate and rhythm without murmurs ABDOMEN: Soft, nontender, normoactive bowel sounds. No guarding, no rebound. No masses appreciated. EXTREMITIES: Patient is unable to abduct the shoulder past 90 due to pain, no pitting or edema. No cyanosis. NEUROLOGICAL: RMU motor and sensory distribution is intact bilaterally. 5 out of 5 biceps and triceps strength bilaterally. PSYCH: Normal mood, normal affect. SKIN: Warm, Dry, normal turgor, no rashes or lesions noted. Course - Re-evaluation Re-evalutation: 02/23/18 23:10 No evidence of a septic joint, gout flare, dislocation, or fracture on exam and imaging. Surgical fixation is stable based on x-ray imaging. RMU motor and sensory distribution is intact bilaterally. Vitals wnl. At this time, I do not see an indication for labs or further imaging. Will discharge with conservative measures, return precautions, and follow-up recommendations. - Vital Signs Vital signs: Temp Pulse Resp BP Pulse Ox 98.3 F 98 16 119/80 98 02/23/18 21:42 02/23/18 21:42 02/23/18 21:42 02/23/18 21:42 02/23/18 21:42 - Diagnostic Test Radiology reviewed: Image reviewed, Reports reviewed Radiology results interpreted by me: 02/23/18 23:11 Humerus x-ray: Hardware appears stable Discharge - Discharge Clinical Impression: Right arm pain Right shoulder pain Qualifiers: Chronicity: acute Qualified Code(s): M25.511 - Pain in right shoulder Condition: Good Disposition: HOME, SELF-CARE Additional Instructions: Your x-ray does not show any acute fracture today. You likely have a ligamentous strain. Take the naproxen 500 mg twice daily. You may also take Tylenol 1000 mg every 6 hours as needed for additional pain. If neither of these interventions control your pain, he may take tramadol 50 mg every 6 hours. You can also purchase topical lidocaine [id number] to apply to the area. Flexeril can be used at night to help relax your muscles and help to sleep. Continue to apply ice to the area is much your able. Please follow-up with your primary care physician if you do not have improving your symptoms in the next 1-2 weeks. Please return immediately if you develop weakness, numbness , spreading redness from the area, or any other symptoms that are concerning to you. Prescriptions: Cyclobenzaprine HCl [Flexeril 10 mg Tablet] 10 mg PO QHS PRN #10 tablet PRN Reason: Naproxen 500 mg PO BID #60 tablet Tramadol HCl 50 mg PO Q6H PRN #10 tablet PRN Reason: Severe Pain Referrals: RAMIRO SIGNH MD [Primary Care Provider] - Follow up as needed
== END 2018-02-23 23:30 | disposition home or self-care (01) ==
LOC: ER 21:30
DX: M89.8X2 Other specified disorders of bone, upper arm (principal); M25.511 Pain in right shoulder; F17.200 Nicotine dependence, unspecified, uncomplicated; Z87.892 Personal history of anaphylaxis; Z88.1 Allergy status to other antibiotic agents; Z88.5 Allergy status to narcotic agent; Z88.0 Allergy status to penicillin
CPT/HCPCS: 99283; 73060; J3490 ×3